=== PATIENT | male | born 1975 | race Caucasian/White ===

== ENCOUNTER 2018-12-18 13:32 | Inpatient (IN) | payer OTHER ==
[~2018-12-18] VITALS: Ht 182.9 cm; Wt 96.2 kg
--- OUTSIDE RECORDS SUMMARY | 2018-12-18 13:35 | XMS REPORT ---
Author Author Virgie Myers Organization e[employer] Address Unknown Phone Unavailable Care Team Providers Care Upholstery Covers Inspector Name Role Phone Virgie Myers CP Unavailable Allergies, Adverse Reactions, Alerts Substance Reaction Event Type N.K.D.A. Info Not Available Non Drug Allergy Encounters Encounter Location Date 2 wk fu [facility] November 12, 2013 DISCUSS MEDS [facility] March 03, 2014 Problems Problem Type Condition ICD-9 Code Onset Dates Condition Status Problem BMI 27.0-27.9,adult V85.23 Active Assessment Diabetes mellitus 250.00 Active Problem HLD (hyperlipidemia) 272.4 Active Assessment Hyperlipidemia 272.4 Active Medications Medication Code System Code Instructions Start Date End Date Status Dosage Lipitor [facility] [address]-63 10 mg Orally Once a day Active [address] [facility] [address]-02 100 UNIT/ML Subcutaneous daily Active 10-[address] [facility] [address]69 ? Orally Once a day Active as directed GlipiZIDE [facility] [address]-96 10 mg Orally Once a day November 12, 2013 Active 1 tablet Metformin HCl [facility] [address]-68 1000 mg Orally twice a day (bid) Inactive [address] [facility] [address]-66 10 mg Orally Once a day Active 1 tablet Social History Social History Element Qualifiers Date Reported children . None March 03, 2014 Tobacco Use: . Are you a: never smoker March 03, 2014 Use of recreational / street drugs? . Answer: No March 03, 2014 Marital Status: . Single March 03, 2014 Do you drink alcohol? . Status: Yes, Type: Beer, How often? 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 Avg Glu (eAG)(- mg/dL) 217 Microalb/Creat Ratio, Randm Ur Creatinine, Urine(-24.0-392.0 mg/dL) 115.8 Microalb/Creat Ratio(-0.0-30.0 mg/g creat) 10.3 Microalbumin, Urine(-0.0-17.0 ug/mL) 11.9 TSH TSH(-0.450-4.500 uIU/mL) 1.130 CBC With Differential/Platelet MCHC(-31.5-35.7 g/dL) 34.1 MCH(-26.6-33.0 pg) 29.8 Platelets(-150-379 x10E3/uL) 251 RDW(-12.3-15.4 %) 13.2 Immature Granulocytes(-0-2 %) 0 Immature Grans (Abs)(-0.0-0.1 x10E3/uL) 0.0 Lymphs(-14-46 %) 33 Monocytes(-4-12 %) 9 Neutrophils(-40-74 %) 56 Neutrophils (Absolute)(-1.4-7.0 x10E3/uL) 4.8 Hematocrit(-37.5-51.0 %) 47.2 Lymphs (Absolute)(-0.7-3.1 x10E3/uL) 2.8 MCV(-79-97 fL) 87 RBC(-4.14-5.80 x10E6/uL) 5.40 Eos(-0-5 %) 2 Basos(-0-3 %) 0 Hemoglobin(-12.6-17.7 g/dL) 16.1 Baso (Absolute)(-0.0-0.2 x10E3/uL) 0.0 WBC(-3.4-10.8 x10E3/uL) 8.6 Monocytes(Absolute)(-0.1-0.9 x10E3/uL) 0.7 Eos (Absolute)(-0.0-0.4 x10E3/uL) 0.1 Lipid Panel LDL Cholesterol Calc(-0-99 mg/dL) 85 VLDL Cholesterol Jovanny(-5-40 mg/dL) 16 HDL Cholesterol(->39 mg/dL) 68 Triglycerides(-0-149 mg/dL) 78 Cholesterol, Total(-100-199 mg/dL) 169 Comp. Metabolic Panel (14) Creatinine, Serum(-0.76-1.27 mg/dL) 0.77 BUN(-6-20 mg/dL) 20 eGFR If Africn Am(- >59 mL/min/1.73) 132 eGFR If NonAfricn Am(- >59 mL/min/1.73) 114 Sodium, Serum(-134-144 mmol/L) 140 BUN/Creatinine Ratio(-8-19 ) 26 Chloride, Serum(-97-108 mmol/L) 99 Potassium, Serum(-3.5-5.2 mmol/L) 4.2 Carbon Dioxide, Total(-18-29 mmol/L) 25 Protein, Total, Serum(-6.0-8.5 g/dL) 7.2 Calcium, Serum(-8.7-10.2 mg/dL) 10.2 Globulin, Total(-1.5-4.5 g/dL) 2.2 Albumin, Serum(-3.5-5.5 g/dL) 5.0 Bilirubin, Total(-0.0-1.2 mg/dL) 2.0 Glucose, Serum(-65-99 mg/dL) 157 A/G Ratio(-1.1-2.5 ) 2.3 ALT (SGPT)(-0-44 IU/L) 42 Alkaline Phosphatase, S(-39-117 IU/L) 78 AST (SGOT)(-0-40 IU/L) 19 Summary Purpose eClinicalWorks Submission
--- OUTSIDE RECORDS SUMMARY | 2018-12-18 13:35 | XMS REPORT | Encounter Summary ---
Author Organization Unknown Address [address] [place] [address] Phone [phone] Reason for Visit Medical Complaint Instructions 1. Body mass index 30+ - obesity 2. Pain in throat rapid strep group A, throat sore throat: care instructions Discussion Note discussed with patient to monitor for fever and any change in symptoms, return to clinic or follow up with pcp. continue tylenol or ibuprofen for discomfort. patient verbalized understanding. Plan of Care Reminders Provider Appointments None recorded. Lab Rapid Strep Group a, Throat 05/20/2018 [facility] Referral None recorded. Procedures None recorded. Surgeries None recorded. Imaging None recorded. Medications No Medications Reported Medications Administered None recorded. Vitals Height Weight BMI Blood Pressure 5 ft 11 in 230 lbs 32.1 kg/m2 120/78 mm[Hg] Lab Results Date Name Specimen Result Interpretation Description Value Range Status Address Rapid Strep Group a, Throat Result negative [facility]: [address] [place] [address] Swab Location Left and Right tonsillar pillars [facility]: [address] [place] [address] Allergies Code Code System Name Reaction Severity Status Onset NKDA Problems None recorded. Procedures None recorded. Vaccine List None recorded. Social History Smoking Status Never Smoker Past Encounters 05/20/2018 Body Mass Index 30+ - Obesity; Pain in Throat Joaquin Richter PA-C: [address] [place] [address], Ph. History of Present Illness Throat-Oral Complaint Reported By: Patient HPI: Location: throat; seems to be better before. Quality: sore throat. Severity: mild. Duration: 1/2 days. Onset/Timing: sudden. Context: no sick contacts, no foreign travel, non-smoker. Associated Symptoms: no fever, no headache, no body aches, no sputum production, no shortness of breath, no wheezing, no change in number of pillows needed to sleep at night, no sweats, no significant weight gain, no significant weight loss, no morning cough, no vomiting, no diarrhea, no rash, no nausea, sore throat Review of Systems Basic Reported By: Patient Constitutional: Constitutional: no fever Eyes: Eyes: no eye complaints Nuey-Tmcm-Ymklg-Throat: Ears: no ear complaints. Nose: no nose/sinus problems. Mouth/Throat: no bleeding gums, no mouth complaints, no teeth problems, sore throat Cardiovascular: Cardiovascular: no chest pain, no shortness of breath, no known heart murmur Respiratory: Respiratory: no cough, no wheezing, no shortness of breath Gastrointestinal: Gastrointestinal: no abdominal pain, no vomiting / diarrhea Genitourinary: Genitourinary: no urinary complaints, no discharge Musculoskeletal: Musculoskeletal: no muscle aches, no muscle weakness, no arthralgias/joint pain, no back pain Skin: Skin: no abnormal / changing mole, no jaundice, no rashes Neurologic: Neurologic: no loss of consciousness, no weakness, no numbness, no seizures, no dizziness, no headaches Physical Exam Adult Basic Reported By: Patient Constitutional: General Appearance: obese. Level of Distress: NAD. Ambulation: ambulating normally Psychiatric: Mental Status: active and alert. Orientation: to time, to place, to person Eyes: Lids and Conjunctivae: non-injected, no discharge, no pallor. Pupils: PERRLA. EOM: EOMI. Sclerae: non-icteric. Vision: acuity grossly intact Xsp-Vmry-Zjkvq-Throat: Ears: no lesions on external ear, no outer ear tenderness, EACs clear, TMs clear. Hearing: no hearing loss. Nose: no lesions on external nose, nares patent, no septal deviation, nasal passages clear, no sinus tenderness, post nasal drip. Lips, Teeth, and Gums: no mouth or lip ulcers, no bleeding gums, normal dentition. Oropharynx: moist mucous membranes, no erythema, no exudates, tonsils not enlarged; cobblestoning Neck: Neck: supple, trachea midline, no masses, FROM. Lymph Nodes: no cervical LAD, no supraclavicular LAD Lungs: Respiratory effort: no dyspnea, no tachypnea, no use of accessory muscles, no intercostal retractions. Auscultation: breath sounds normal Cardiovascular: Heart Auscultation: RRR, no murmurs
--- OUTSIDE RECORDS SUMMARY | 2018-12-18 13:35 | XMS REPORT | Continuity of Care Document ---
Author Author [facility] Address Unknown Phone Unavailable Problems Problem Status Onset Date Classification Date Reported Comments Source Pain in throat 05/20/2018 Diagnosis 05/20/2018 [facility] Body mass index 30+ - obesity 05/20/2018 Diagnosis 05/20/2018 [facility] Type 2 diabetes mellitus with hyperglycemia Active Problem 08/30/2017 [facility] Hyperlipidemia, unspecified hyperlipidemia type Active Problem 08/30/2017 [facility] Pain in right foot Active Diagnosis 08/11/2017 [facility] Pain of left foot Active Diagnosis 08/11/2017 [facility] Infertility counseling Active Diagnosis 05/28/2016 [facility] BMI 27.0-27.9,adult Active Problem 04/08/2014 [facility] Diabetes mellitus Active Diagnosis 04/08/2014 [facility] HLD Active Problem 04/08/2014 [facility] Hyperlipidemia Active Diagnosis 04/08/2014 [facility] Medications Medication Details Route Status Patient Instructions Ordering Provider Order Date Source Levemir FlexTouch as directed Subcutaneous Active 100 UNIT/ML Subcutaneous 20 units every night Merritt 05/26/2016 [facility] Levemir FlexTouch as directed Subcutaneous Active 100 UNIT/ML Subcutaneous 30 units every night Deniz 05/26/2016 [facility] Levemir Flexpen 10 units Subcutaneous Active 100 UNIT/ML Subcutaneous QHS Deniz 09/17/2015 [facility] Humalog 10 units Subcutaneous No Longer Active 100 UNIT/ML Subcutaneous 10 minutes before meals Deniz 09/17/2015 [facility] GlipiZIDE 1 tablet Orally Active 10 mg Orally Once a day Deniz 11/12/2013 [facility] Lipitor 1 tablet Orally Active 10 mg Orally Once a day Ghebranious 11/12/2013 [facility] Metformin HCl 1 tablet Orally Active 1000 mg Orally twice a day (bid) Ghebranious 10/29/2013 [facility] No Medications Reported No Medications Reported Active [facility] NovoLog 5 units Subcutaneous Active 100 UNIT/ML Subcutaneous 10 minutes before meals Merritt [facility] NovoLog 5 units Subcutaneous Active 100 UNIT/ML Subcutaneous 10 minutes before meals Deniz [facility] GlipiZIDE 1 tablet Orally Active 10 mg Orally Once a day Deniz [facility] Lipitor 1 tablet Orally Active 10 mg Orally Once a day Deniz [facility] Multivitamin as directed Orally Active ? Orally Once a day Lisajeffmagedsrinivasa [facility] Metformin HCl 1 tablet Orally No Longer Active 1000 mg Orally twice a day (bid) Louis [facility] Allergies, Adverse Reactions, Alerts Substance Category Reaction Severity Reaction type Status Date Reported Comments Source N.K.D.A. Adverse Reaction Info Not Available Adverse Reaction Active 08/10/2017 [facility] Immunizations Immunization Date Given Site Status Last Updated Comments Source Results Order Name Results Value Reference Range Date Interpretation Comments Source RESULT negative 05/20/2018 [facility] SWAB LOCATION Left and Right tonsillar pillars 05/20/2018 [facility] Vital Signs Vital Sign Value Date Comments Source Diastolic (mm Hg) 78 05/20/2018 [facility] Height 71 05/20/2018 [facility] Systolic (mm Hg) 120 05/20/2018 [facility] Weight 230 05/20/2018 [facility] Weight 240 08/10/2017 [facility] Height 71 08/10/2017 [facility] Heart Rate 88 08/10/2017 [facility] Diastolic (mm Hg) 70 08/10/2017 [facility] Systolic (mm Hg) 118 08/10/2017 [facility] Weight 228 10/19/2016 [facility] Height 71 10/19/2016 [facility] Heart Rate 87 10/19/2016 [facility] Diastolic (mm Hg) 76 10/19/2016 [facility] Systolic (mm Hg) 122 10/19/2016 [facility] Weight 223 05/26/2016 [facility] Height 71 05/26/2016 [facility] Heart Rate 91 05/26/2016 [facility] Diastolic (mm Hg) 80 05/26/2016 [facility] Systolic (mm Hg) 120 05/26/2016 [facility] Weight 220 07/23/2015 [facility] Height 71 07/23/2015 [facility] Heart Rate 97 07/23/2015 [facility] Diastolic (mm Hg) 80 07/23/2015 [facility] Systolic (mm Hg) 118 07/23/2015 [facility] Weight 203 03/03/2014 [facility] Height 71 03/03/2014 [facility] Temperature Oral (F) 98.3 F 03/03/2014 [facility] Heart Rate 84 03/03/2014 [facility] Diastolic (mm Hg) 90 03/03/2014 [facility] Systolic (mm Hg) 136 03/03/2014 [facility] Weight 196 11/12/2013 [facility] Height 71 11/12/2013 [facility] Heart Rate 76 11/12/2013 [facility] Diastolic (mm Hg) 80 11/12/2013 [facility] Systolic (mm Hg) 128 11/12/2013 [facility] Encounters Location Location Details Encounter Type Encounter Number Reason For Visit Attending Provider ADM Date DC Date Status Source [facility] 2 wk fu [id number] 11/12/2013 11/12/2013 [facility] 2 wk fu [id number] 11/12/2013 11/12/2013 [facility] 2 wk fu [id number] 11/12/2013 11/12/2013 [facility] 2 wk fu [id number] 11/12/2013 11/12/2013 [facility] 2 wk fu [id number] 11/12/2013 11/12/2013 [facility] DISCUSS MEDS [id number] 03/03/2014 03/03/2014 [facility] DISCUSS MEDS [id number] 03/03/2014 03/03/2014 [facility] DISCUSS MEDS [id number] 03/03/2014 03/03/2014 [facility] DISCUSS MEDS [id number] 03/03/2014 03/03/2014 [facility] medication refill [id number] 07/23/2015 07/23/2015 [facility] medication refill [id number] 07/23/2015 07/23/2015 [facility] medication refill [id number] 07/23/2015 07/23/2015 [facility] 3 MONTH FOLLOW UP [id number] 05/26/2016 05/26/2016 [facility] 3 MONTH FOLLOW UP [id number] 05/26/2016 05/26/2016 [facility] medication refills [id number] 10/19/2016 10/19/2016 [facility] [place] [facility] - [id number] ChristieC: [address] [facility] [place], [place] [address], Ph. [id number] Joaquin Richter 05/20/2018 [facility] Procedures Procedure Code Date Perfomer Comments Source
--- OUTSIDE RECORDS SUMMARY | 2018-12-18 13:35 | XMS REPORT ---
Author Author Lory Guaman [employer] Address Unknown Phone Unavailable Care Team Providers Care Application Penetration Tester Name Role Phone Lory Guaman CP Unavailable Allergies, Adverse Reactions, Alerts Substance Reaction Event Type N.K.D.A. Info Not Available Non Drug Allergy Encounters Encounter Location Date 3 MONTH FOLLOW UP [facility] May 26, 2016 medication refills [facility] October 19, 2016 2 wk fu [facility] November 12, 2013 DISCUSS MEDS [facility] March 03, 2014 medication refill [facility] Jul 23, 2015 Problems Problem Type Condition ICD-9 Code Onset Dates Condition Status Problem Type 2 diabetes mellitus with hyperglycemia E11.65 Active Assessment Type 2 diabetes mellitus with hyperglycemia E11.65 Active Problem Hyperlipidemia, unspecified hyperlipidemia type E78.5 Active Assessment Hyperlipidemia, unspecified hyperlipidemia type E78.5 Active Medications Medication Code System Code Instructions Start Date End Date Status Dosage Levemir FlexTouch [facility] [address]-93 100 UNIT/ML Subcutaneous 30 units every night May 26, 2016 Active as directed Levemir FlexTouch [facility] [address]-57 100 UNIT/ML Subcutaneous 20 units every night May 26, 2016 Active as directed NovoLog [facility] [address]-23 100 UNIT/ML Subcutaneous 10 minutes before meals Active 5 units Social History Social History Element Qualifiers Date Reported 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 None October 19, 2016 Flu Vaccine: . Refuse for 2015October 19, 2016 Tobacco Use: . Are you a: never smoker October 19, 2016 Depression Screening: . negative October 19, 2016 Use of recreational / street drugs? . Answer: No October 19, 2016 Do you have pets? . Status: No October 19, 2016 Last Colonoscopy: . never October 19, 2016 Marital Status: . Single October 19, 2016 Caffeine intake? . Status: Yes October 19, 2016 Do you exercise? . Answer: No October 19, 2016 Last Bone Density: . never October 19, 2016 Do you drink alcohol? . Status: Yes, Type: Beer, How often? Weekly October 19, 2016 Family history Qualifier Description Comment Date Reported Maternal Grandmother Comment not available October 19, 2016 Paternal Grandmother Comment not available October 19, 2016 Siblings Comment not available October 19, 2016 Maternal Grandfather Comment not available October 19, 2016 Children Comment not available October 19, 2016 Father respiratory failure 2 to smoking October 19, 2016 Paternal Grandfather Comment not available October 19, 2016 Mother alive depression October 19, 2016 Other: Comment not available October 19, 2016 Vital Signs Date/Time: October 19, 2016 Weight 228 lbs Height 71 in Cardiac Monitoring Heart Rate 87 /min Blood Pressure Diastolic 76 mm Hg Blood Pressure Systolic 122 mm Hg Summary Purpose eClinicalWorks Submission
--- OUTSIDE RECORDS SUMMARY | 2018-12-18 13:35 | XMS REPORT ---
Author Author Cris Bang Organization e[employer] Address Unknown Phone Unavailable Care Team Providers Care Access Clerk Name Role Phone Cris Bang CP Unavailable Allergies No Known Allergies Problems Problem Type Condition Code Onset Dates Condition Status Problem Type 2 diabetes mellitus with hyperglycemia E11.65 Active Problem Hyperlipidemia, unspecified hyperlipidemia type E78.5 Active Medications No Known Medications Results No Known Results Summary Purpose eClinicalWorks Submission
--- OUTSIDE RECORDS SUMMARY | 2018-12-18 13:35 | XMS REPORT ---
Author Author Lory Guaman [employer] Address Unknown Phone Unavailable Care Team Providers Care Slabbing Machine Operator Name Role Phone Lory Guaman CP Unavailable Allergies, Adverse Reactions, Alerts Substance Reaction Event Type N.K.D.A. Info Not Available Non Drug Allergy Encounters Encounter Location Date 3 MONTH FOLLOW UP [facility] May 26, 2016 2 wk fu [facility] November 12, 2013 DISCUSS MEDS [facility] March 03, 2014 medication refill [facility] Jul 23, 2015 Problems Problem Type Condition ICD-9 Code Onset Dates Condition Status Problem Type 2 diabetes mellitus with hyperglycemia E11.65 Active Assessment Type 2 diabetes mellitus with hyperglycemia E11.65 Active Problem Hyperlipidemia, unspecified hyperlipidemia type E78.5 Active Assessment Hyperlipidemia, unspecified hyperlipidemia type E78.5 Active Assessment Infertility counseling Z31.69 Active Medications Medication Code System Code Instructions Start Date End Date Status Dosage Levemir Flexpen [facility] [address]-39 100 UNIT/ML Subcutaneous QHS Sep 17, 2015 Active 10 units Humalog [facility] [address]-70 100 UNIT/ML Subcutaneous 10 minutes before meals Sep 17, 2015 Inactive 10 units Levemir FlexTouch [facility] [address]-11 100 UNIT/ML Subcutaneous 30 units every night May 26, 2016 Active as directed Social History Social History Element Qualifiers Date Reported Depression Screening: . negative May 26, 2016 Flu Vaccine: . Refuse for 2015May 26, 2016 Last Colonoscopy: . never May 26, 2016 Last Bone Density: . never May 26, 2016 children . None May 26, 2016 Tobacco Use: . Are you a: never smoker May 26, 2016 Use of recreational / street drugs? . Answer: No May 26, 2016 Marital Status: . Single May 26, 2016 Do you drink alcohol? . Status: Yes, Type: Beer, How often? 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 Family history Qualifier Description Comment Date Reported Maternal Grandmother Comment not available May 26, 2016 Paternal Grandmother Comment not available May 26, 2016 Siblings Comment not available May 26, 2016 Maternal Grandfather Comment not available May 26, 2016 Children Comment not available May 26, 2016 Father respiratory failure 2 to smoking May 26, 2016 Paternal Grandfather Comment not available May 26, 2016 Mother alive depression May 26, 2016 Other: Comment not available May 26, 2016 Vital Signs Date/Time: May 26, 2016 Weight 223 lbs Height 71 in Cardiac Monitoring Heart Rate 91 /min Blood Pressure Diastolic 80 mm Hg Blood Pressure Systolic 120 mm Hg Summary Purpose eClinicalWorks Submission
--- OUTSIDE RECORDS SUMMARY | 2018-12-18 13:35 | XMS REPORT ---
Author Author Cris Bang Organization [employer] Address Unknown Phone Unavailable Care Team Providers Care Art Glass Designer Name Role Phone Cris Bang CP Unavailable Allergies, Adverse Reactions, Alerts Substance Reaction Event Type N.K.D.A. Info Not Available Non Drug Allergy Problems Problem Type Condition Code Onset Dates Condition Status Problem Type 2 diabetes mellitus with hyperglycemia E11.65 Active Assessment Type 2 diabetes mellitus with hyperglycemia E11.65 Active Problem Hyperlipidemia, unspecified hyperlipidemia type E78.5 Active Assessment Pain in right foot M79.671 Active Assessment Hyperlipidemia, unspecified hyperlipidemia type E78.5 Active Assessment Pain of left foot M79.672 Active Medications Medication Code System Code Instructions Start Date End Date Status Dosage Levemir FlexTouch [facility] 14685424248 100 UNIT/ML Subcutaneous 20 units every night May 26, 2016 Active as directed NovoLog [facility] 26750175626 100 UNIT/ML Subcutaneous 10 minutes before meals Active 5 units Vital Signs Date/Time: Aug 10, 2017 BMI 33.47 Index Weight 240 lbs Height 71 in Cardiac Monitoring Heart Rate 88 /min Blood Pressure Diastolic 70 mm Hg Blood Pressure Systolic 118 mm Hg Results No Known Results Summary Purpose eClinicalWorks Submission
--- OUTSIDE RECORDS SUMMARY | 2018-12-18 13:35 | XMS REPORT ---
Author Author Virgie Myers Organization [employer] Address Unknown Phone Unavailable Care Team Providers Care Tensile Tester Name Role Phone Virgie Myers CP Unavailable Encounters Encounter Location Date 2 wk fu [facility] November 12, 2013 Problems Problem Type Condition ICD-9 Code Onset Dates Condition Status Assessment Diabetes mellitus 250.00 Active Assessment Hyperlipidemia 272.4 Active Problem BMI 27.0-27.9,adult V85.23 Active Medications Medication Code System Code Instructions Start Date End Date Status Dosage Metformin HCl [facility] [address]-44 1000 mg Orally twice a day (bid) October 29, 2013 Active [address] [facility] [address]-70 10 mg Orally Once a day November 12, 2013 Active [address] [facility] [address] ? Orally Once a day Active as directed Lipitor [facility] [address]-82 10 mg Orally Once a day November 12, 2013 Active 1 tablet Social History Social History Element Qualifiers Date Reported children . None November 12, 2013 Tobacco Use: . Are you a: never smoker November 12, 2013 Use of recreational / street drugs? . Answer: No November 12, 2013 Marital Status: . Single November 12, 2013 Do you drink alcohol? . Status: Yes, Type: Beer, How often? 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
--- OUTSIDE RECORDS SUMMARY | 2018-12-18 13:35 | XMS REPORT ---
Author Author Lory Gumaan [facility] [place] e[employer] Address Unknown Phone Unavailable Care Team Providers Care Top Taper Machine Name Role Phone Lory Guaman Unavailable Allergies, Adverse Reactions, Alerts Substance Reaction Event Type N.K.D.A. Info Not Available Non Drug Allergy Encounters Encounter Location Date 2 wk fu [facility] November 12, 2013 DISCUSS MEDS [facility] March 03, 2014 medication refill [facility] Jul 23, 2015 Problems Problem Type Condition ICD-9 Code Onset Dates Condition Status Assessment Type 2 diabetes mellitus with hyperglycemia E11.65 Active Problem Type 2 diabetes mellitus with hyperglycemia E11.65 Active Medications Medication Code System Code Instructions Start Date End Date Status Dosage GlipiZIDE [facility] [address]-88 10 mg Orally Once a day Active 1 tablet [facility] [address]-96 10 mg Orally Once a day Active 1 tablet NovoLog [facility] [address]-04 100 UNIT/ML Subcutaneous daily Active 10-18 units GlipiZIDE [facility] [address]-06 10 mg Orally Once a day November 12, 2013 Active 1 tablet Social History Social History Element Qualifiers Date Reported Depression Screening: . negative Jul 23, 2015 Flu Vaccine: . no Jul 23, 2015 Last Colonoscopy: . never Jul 23, 2015 Last Bone Density: . never Jul 23, 2015 children . None Jul 23, 2015 Tobacco Use: . Are you a: never smoker Jul 23, 2015 Use of recreational / street drugs? . Answer: No Jul 23, 2015 Marital Status: . Single Jul 23, 2015 Do you drink alcohol? . Status: Yes, Type: Beer, How often? 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 23, 2015 Family history Qualifier Description Comment Date Reported Maternal Grandmother Comment not available Jul 23, 2015 Paternal Grandmother Comment not available Jul 23, 2015 Siblings Comment not available Jul 23, 2015 Maternal Grandfather Comment not available Jul 23, 2015 Children Comment not available Jul 23, 2015 Father respiratory failure 2 to smoking Jul 23, 2015 Paternal Grandfather Comment not available Jul 23, 2015 Mother alive depression Jul 23, 2015 Other: Comment not available Jul 23, 2015 Vital Signs Date/Time: Jul 23, 2015 Weight 220 lbs Height 71 in Cardiac Monitoring Heart Rate 97 /min Blood Pressure Diastolic 80 mm Hg Blood Pressure Systolic 118 mm Hg Summary Purpose eClinicalWorks Submission
[2018-12-18] MEDS ORDERED: FAMOTIDINE 20 MG/2 ML VIAL IV STA (14:05)
[2018-12-18] MEDS ORDERED: ONDANSETRON HCL INJ 2MG/ML 2ML 2 MG/ML VIAL IV STA (14:05)
--- NOTE | 2018-12-18 14:21 | Diagnostic Imaging Report ---
EXAMINATION: CXR 1 VEW - HOPD INDICATION: Hyperglycemia. COMPARISON: None FINDINGS: TUBES and LINES: None. LUNGS: Lungs are well inflated. Lungs are clear. There is no evidence of pneumonia or pulmonary edema. PLEURA: No pleural effusion or pneumothorax. HEART AND MEDIASTINUM: The cardiomediastinal silhouette is unremarkable. BONES AND SOFT TISSUES: No acute osseous abnormality. UPPER ABDOMEN: No free air under the diaphragm. IMPRESSION: No acute radiographic abnormality. Signed by: Dr. Cookie Mack MD on 12/18/2018 2:18 PM
[2018-12-18] MEDS ORDERED: CLINDAMYCIN PHOS 900MG/ 50ML 50 ML IV NR (15:00)
[2018-12-18] MEDS: SODIUM CHLORIDE 0.9% 1000ML 1,000 ML IV SCH ×9 (15:16→22:24)
[2018-12-18] MEDS ORDERED: INSULIN REGULAR, HUMAN 3ML VL 100 UNIT in SODIUM CHLORIDE 0.9% 100 ML 99 ML IV SCH ×4 (16:30→22:30)
[2018-12-18] MEDS ORDERED: SODIUM CHLORIDE 0.9% 1000ML 1,000 ML IV SCH ×2 (16:30→16:37)
[2018-12-18 16:32] LABS: MAGNESIUM 2.5 MG/DL (1.3-2.1); PHOSPHORUS 3.2 MG/DL (2.3-4.7)
[2018-12-18] MEDS ORDERED: DEXTROSE 5%/0.45% SOD CHL 1,000 ML IV SCH (16:33)
[2018-12-18] MEDS ORDERED: INSULIN REGULAR, HUMAN 3ML VL 1 UNIT in SODIUM CHLORIDE 0.9% 100 ML IV SCH ×2 (16:45)
[2018-12-18] MEDS ORDERED: MAGNESIUM SULF 1GRAM/DEXTROSE 100 ML IV PRN (16:45)
[2018-12-18] MEDS ORDERED: ONDANSETRON HCL INJ 2MG/ML 2ML 2 MG/ML VIAL IV PRN (16:45)
[2018-12-18] MEDS ORDERED: POTASSIUM CHLORIDE 20MEQ/100ML 200 ML IV PRN (16:45)
[2018-12-18 17:00] LABS: ANION GAP 30.1 mmol/L (8-16); CREATININE, SERUM 1.72 mg/dL (0.72-1.25)
[2018-12-18 17:02] LABS: POTASSIUM 5.1 mmol/L (3.5-5.1)
--- OUTSIDE RECORDS SUMMARY | 2018-12-18 17:16 | XMS REPORT | Continuity of Care Document ---
Author Author [facility] Address Unknown Phone Unavailable Problems Problem Status Onset Date Classification Date Reported Comments Source History of diabetes mellitus 12/18/2018 Diagnosis 12/18/2018 [facility] Nausea and vomiting 12/18/2018 Diagnosis 12/18/2018 [facility] Elevated blood pressure 12/18/2018 Diagnosis 12/18/2018 [facility] On examination - pulse rate tachycardia 12/18/2018 Diagnosis 12/18/2018 [facility] Body mass index 30+ - obesity 12/18/2018 Diagnosis 12/18/2018 [facility] Pain in throat 05/20/2018 Diagnosis 05/20/2018 [facility] Type 2 diabetes [...] Subcutaneous 10 minutes before meals Deniz 09/17/2015 [facility] GlipiZIDE 1 tablet Orally Active 10 mg Orally Once a day [facility] 11/12/2013 [facility] Lipitor 1 tablet Orally Active 10 mg Orally Once a day [facility] 11/12/2013 [facility] Metformin HCl 1 tablet Orally Active 1000 mg Orally twice a day (bid) [facility] 10/29/2013 [facility] No Medications Reported No Medications Reported Active [facility] Insulin, Aspart, Human 100 UNT/ML Injectable Solution [NovoLog] Novolog U-100 Insulin aspart 100 unit/mL subcutaneous solution Inject by subcutaneous route. Active [facility] NovoLog 5 units Subcutaneous Active 100 UNIT/ML Subcutaneous 10 minutes before meals [facility] NovoLog 5 units Subcutaneous Active 100 UNIT/ML Subcutaneous 10 minutes before meals [facility] GlipiZIDE 1 tablet Orally Active 10 mg Orally Once a day [facility] Lipitor 1 tablet Orally Active 10 mg Orally Once a day [facility] Multivitamin as directed Orally Active ? Orally Once a day [facility] Metformin HCl 1 tablet Orally No Longer Active 1000 mg Orally twice a day (bid) [facility] Allergies, Adverse Reactions, Alerts Substance Category Reaction Severity Reaction type Status Date Reported Comments Source N.K.D.A. Adverse Reaction Info Not Available Adverse Reaction Active 08/10/2017 [facility] Immunizations Immunization Date Given Site Status Last Updated Comments Source Results Order Name Results Value Reference Range Date Interpretation Comments Source Glucose [Mass/volume] in Capillary blood Results 533 12/18/2018 [facility] Influenza A negative 12/18/2018 [facility] Influenza B negative 12/18/2018 [facility] RESULT negative 05/20/2018 [facility] SWAB LOCATION Left and Right tonsillar pillars 05/20/2018 [facility] Vital Signs Vital Sign Value Date Comments Source Diastolic (mm Hg) 94 12/18/2018 [facility] Height 71 12/18/2018 [facility] Systolic (mm Hg) 134 12/18/2018 [facility] Weight 230 12/18/2018 [facility] Diastolic (mm Hg) 78 05/20/2018 [facility] Height 71 05/20/2018 [facility] Systolic (mm Hg) 120 05/20/2018 [facility] Weight 230 05/20/2018 [facility] Weight 240 08/10/2017 [facility] Height [...] [facility] Heart Rate 87 10/19/2016 [facility] Diastolic (mm Hg) 76 10/19/2016 [facility] Systolic (mm Hg) 122 10/19/2016 [facility] Weight 223 05/26/2016 [facility] Height 71 05/26/2016 [facility] Heart Rate 91 05/26/2016 [facility] Diastolic (mm Hg) 80 05/26/2016 [facility] Systolic (mm Hg) 120 05/26/2016 [facility] Weight 220 07/23/2015 [facility] Height 71 07/23/2015 [facility] Heart Rate 97 07/23/2015 [facility] Diastolic (mm Hg) 80 07/23/2015 [facility] Systolic (mm Hg) 118 07/23/2015 [facility] Weight 203 03/03/2014 [facility] Height 71 03/03/2014 [facility] Temperature Oral (F) 98.3 F 03/03/2014 [facility] Heart Rate 84 03/03/2014 [facility] Diastolic (mm Hg) 90 03/03/2014 [facility] Systolic (mm Hg) 136 03/03/2014 [facility] Weight 196 11/12/2013 [facility] Height 71 11/12/2013 [facility] Heart Rate 76 11/12/2013 [facility] Diastolic (mm Hg) 80 11/12/2013 [facility] Systolic (mm Hg) 128 11/12/2013 [facility] Encounters Location Location Details Encounter Type Encounter Number Reason For Visit Attending Provider ADM Date DC Date Status Source [facility] 2 wk fu [id number] 11/12/2013 11/12/2013 [facility] 2 wk fu [id number] 11/12/2013 11/12/2013 [facility] 2 wk fu [id number] 11/12/2013 11/12/2013 [facility] 2 wk fu [id number] 11/12/2013 11/12/2013 [facility] 2 wk fu [id number] 11/12/2013 11/12/2013 [facility] DISCUSS MEDS [id number] 03/03/2014 03/03/2014 [facility] DISCUSS MEDS [id number] 03/03/2014 03/03/2014 [facility] DISCUSS MEDS [id number] 03/03/2014 03/03/2014 [facility] DISCUSS MEDS [id number] 03/03/2014 03/03/2014 [facility] medication refill [id number] 07/23/2015 07/23/2015 [facility] medication refill [id number] 07/23/2015 07/23/2015 [facility] medication refill [id number] 07/23/2015 07/23/2015 [facility] 3 MONTH FOLLOW UP [id number] 05/26/2016 05/26/2016 [facility] 3 MONTH FOLLOW UP [id number] 05/26/2016 05/26/2016 [facility] medication refills [id number] 10/19/2016 10/19/2016 [facility] [place] [facility] - [id number] ЮЛИЯ Burgos-C: [address] [place] [address], Ph. [id number] Joaquin Richter 05/20/2018 [facility] [place] [facility] [id number] Karey Sharma CODING SPEC-C: [address] [place] [address], Ph. [id number] Karey Sharma 12/18/2018 [facility] Procedures Procedure Code Date Perfomer Comments Source
--- OUTSIDE RECORDS SUMMARY | 2018-12-18 17:17 | XMS REPORT | Encounter Summary ---
Author Organization Unknown Address [address] [place] [address] Phone [phone] Reason for Visit Medical Complaint Instructions 1. History of diabetes mellitus glucose, fingerstick, blood patient follow up phone call diabetic ketoacidosis (dka): care instructions 2. Nausea and vomiting rapid flu (A+B) nausea and vomiting: care instructions 3. On examination - pulse rate tachycardia 4. Elevated blood pressure elevated blood pressure: care instructions dash diet: care instructions blood pressure monitoring education 5. Body mass index 30+ - obesity body mass index: care instructions learning about healthy weight Discussion Note: None recorded. Plan of Care Patient Instructions Diabetic ketoacidosis (DKA) happens when the body does not have enough insulin and can't get the sugar it needs for energy. When the body can't use sugar for energy, it starts to use fat for energy. This process makes fatty acids called ketones. The ketones build up in the blood and change the chemical balance in your body. This problem can be very dangerous and needs to be treated. Without treatment, it can lead to a coma or . DKA occurs most often in people with type 1 diabetes. But people with type 2 diabetes also can get it. DKA can be caused by many things. It can happen if you don't take enough insulin. It can also happen if you have an infection or illness like the flu. Sometimes it happens if you are very dehydrated. DKA can only be treated with insulin and fluids. These are often given in a vein (IV). Follow-up care is a torres part of your treatment and safety. Be sure to make and go to all appointments, and call your doctor if you are having problems. It's also a good idea to know your test results and keep a list of the medicines you take. How can you care for yourself at home? To reduce your chance of ketoacidosis: Take your insulin and other diabetes medicines on time and in the right dose. If an infection caused your DKA and your doctor prescribed antibiotics, take them as directed. Do not stop taking them just because you feel better. You need to take the full course of antibiotics. Test your blood sugar before meals and at bedtime or as often as your doctor advises. This is the best way to know when your blood sugar is high so you can treat it early. Watching for symptoms is not as helpful. This is because you may not have symptoms until your blood sugar is very high. Or you may not notice them. Teach others at work and at home how to check your blood sugar. Make sure that someone else knows how do it in case you can't. Wear or carry medical identification at all times. This is very important in case you are too sick or injured to speak for yourself. Talk to your doctor about when you can start to exercise again. Eat regular meals that spread your calories and carbohydrate throughout the day. This will help keep your blood sugar steady. When you are sick: Take your insulin and diabetes medicines. This is important even if you are vomiting and having trouble eating or drinking. Your blood sugar may go up because you are sick. If you are eating less than normal, you may need to change your dose of insulin. Talk with your doctor about a plan when you are well. Then you will know what to do when you are sick. Drink extra fluids to prevent dehydration. These include water, broth, and sugar-free drinks. If you don't drink enough, the insulin from your shot may not get into your blood. So your blood sugar may go up. Try to eat as you normally do, with a focus on healthy food choices. Check your blood sugar at least every 3 to 4 hours. Check it more often if it's rising fast. If your doctor has told you to take an extra insulin dose for high blood sugar levels (for example, above 240 mg/dL) be sure to take the right amount. If you're not sure how much to take, call your doctor. Check your temperature and pulse often. If your temperature goes up, call your doctor. You may be getting worse. If you take insulin, check your urine or blood for ketones, especially when you have high blood sugar (for example, above 240 mg/dL). Call your doctor if your ketone level is moderate or high. If you know your blood sugar is high, treat it before it gets worse. If you missed your usual dose of insulin or other diabetes medicine, take the missed dose or take the amount your doctor told you to take if this happens. If you and your doctor decide on a dose of [id number] insulin, give yourself the right dose. If you take insulin and your doctor has not told you how much fast-acting insulin to take based on your blood sugar level, call your doctor. Drink extra water or sugar-free drinks to prevent dehydration. Wait 30 minutes after you take extra insulin or missed medicines. Then check your blood sugar again. If symptoms of high blood sugar get worse or your blood sugar level keeps rising, call your doctor. If you start to feel sleepy or confused, call 911. When should you call for help? Call 911 anytime you think you may need emergency care. For example, call if: You passed out (lost consciousness). You are confused or cannot think clearly. Your blood sugar is very high or very low. Watch closely for changes in your health, and be sure to contact your doctor if: Your blood sugar stays outside the level your doctor set for you. You have any problems. Reminders Provider Appointments None recorded. Lab Rapid Flu (A+B) 12/18/2018 [facility] Glucose, Fingerstick, Blood 12/18/2018 [facility] Referral None recorded. Procedures None recorded. Surgeries None recorded. Imaging None recorded. Medications Name Start Date Novolog U-100 Insulin aspart 100 unit/mL subcutaneous solution Inject by subcutaneous route. Medications Administered None recorded. Vitals Height Weight BMI Blood Pressure 5 ft 11 in 230 lbs 32.1 kg/m2 (1) 138/90 mm[Hg] (2) 134/94 mm[Hg] Lab Results Date Name Specimen Result Interpretation Description Value Range Status Address Glucose, Fingerstick, Blood Results 533 [facility]: [facility] Rapid Flu (A+B) Influenza a negative [facility]: [address] [place] [address] Influenza B negative [facility]: [address] [place] [address] Allergies Code Code System Name Reaction Severity Status Onset NKDA Problems No Known Problems Procedures None recorded. Vaccine List None recorded. Social History Smoking Status Never Smoker Past Encounters 12/18/2018 History of Diabetes Mellitus; Nausea and Vomiting; On Examination - Pulse Rate Tachycardia; Elevated Blood Pressure; Body Mass Index 30+ - Obesity [facility] Salomon: [address] [place] [address], Ph. History of Present Illness Acbnmh-Pshiwxbv-Mbewwjwe / Abdominal Pain Reported By: Patient HPI: Duration: present for < 1 week. Context: no one else with similar symptoms, no recent camping, no recent picnic, no possible food sources, no recent travel; pt states that he has a hx pf diabetes, on novolog and has not eaten in 3 days. Associated Symptoms: no excess gas, no fever/chills, no rash, no joint pain, no weight loss, no heartburn, no blood in stool, no mucus in stool, no black or tarry stools, no nutrient deficiency, no headache, no feeling of fullness/mass in throat, no bitter taste in the mouth, no difficulty swallowing (dysphagia), abdominal pain, nausea, vomiting, weakness, muscle aches Note:43 YO male with complaint of nausea, vomiting, body aches x 3 days Review of Systems:ROS as noted in the HPI Review of Systems Basic Reported By: Patient Notes: 43 YO male with complaint of nausea, vomiting, body aches x 3 days Physical Exam Adult Basic, Adult Male Complete Reported By: Patient Constitutional: General Appearance: obese. Level of Distress: mild distress, acutely ill. Ambulation: ambulating normally Psychiatric: Mental Status: lethargic. Orientation: to time, to place, to person Lungs: Respiratory effort: no dyspnea, no tachypnea, no use of accessory muscles, no intercostal retractions. Auscultation: breath sounds normal, good air movement Cardiovascular: Heart Auscultation: no murmurs, tachycardia Notes: 43 YO male with complaint of nausea, vomiting, body aches x 3 days
--- OUTSIDE RECORDS SUMMARY | 2018-12-18 17:17 | XMS REPORT ---
Author Author [facility] Address Unknown Phone Unavailable Care Team Providers Care Environmental Studies Professor Name Role Phone Billy ALVAREZ Unavailable Unavailable Problems This patient has no known problems. Allergies, Adverse Reactions, Alerts This patient has no known allergies or adverse reactions. Medications This patient has no known medications. Results Test Description Test Time Test Comments Text Results Atomic Results Result Comments CXR 1 W - [facility] 2018-12-18 14:16:00 [place] [id number] Patient Name: VIOLA JOHNSON MR #: [id number] : 1975 Age/Sex: 43/M Req #: [id number] Adm Physician: Ordered by: COLBY ALVAREZ MD Report #: [id number] Location: [facility] Room/Bed: Procedure: [id number] HOPD/CXR 1 VEW - [facility] Exam Date: 12/18/18 Exam Time: 1400 REPORT STATUS: Signed EXAMINATION: CXR 1 VEW - [facility] INDICATION: Hyperglycemia. COMPARISON: None FINDINGS: TUBES and LINES: None. LUNGS: Lungs are well inflated. Lungs are clear. There is no evidence of pneumonia or pulmonary edema. PLEURA: No pleural effusion or pneumothorax. HEART AND MEDIASTINUM: The cardiomediastinal silhouette is unremarkable. BONES AND SOFT TISSUES: No acute osseous abnormality. UPPER ABDOMEN: No free air under the diaphragm. IMPRESSION: No acute radiographic abnormality. Signed by: Dr. Zoey Barrientos MD on 12/18/2018 2:18 PM Dictated By: ZOEY BARRIENTOS MD [id number] Transcribed By: AYLEEN on 12/18/181417 COPY TO: COLBY ALVAREZ MD
--- NOTE | 2018-12-18 18:00 | NUR ---
ATTEMPTED TO CALL REPORT ON PATIENT FOR TRANSFER. SPOKE WITH KIZZY WHO STATES SHE CANNOT ACCEPT THE PATIENT RIGHT NOW SHE HAS 2 OTHER ADMISSSIONS COMING AT THIS TIME AND SHE IS UNABLE TO ACCEPT THE PATIENT.
--- NOTE | 2018-12-18 18:05 | NUR ---
SPOKE WITH GEAR MACHINIST CARLOS ALBERTO AND INFORMED HER THAT THE ICU WAS REFUSING TO ACCEPT MY PATIENT WHO IS IN DKA AND NEEDS AN INSULIN DRIP STARTED.CARLOS ALBERTO ASKED ME TO CALL KIZZY. INFORMED CARLOS ALBERTO THAT KIZZY IS THE NURSE WHO REFUSED TO ACCEPT REPORT. INFORMED CARLOS ALBERTO THAT THE AMBULANCE HAS ALREADY BEEN CALLED.
[2018-12-18] MEDS ORDERED: INSULIN REGULAR, HUMAN 3ML VL 100 UNIT in SODIUM CHLORIDE 0.9% 99 ML IV SCH ×2 (18:30)
[2018-12-18 19:35] VITALS: BP 153/83
[2018-12-18 19:45] VITALS: BP 153/83
[2018-12-18 20:00] VITALS: BP 152/87
--- NOTE | 2018-12-18 20:15 | NUR ---
present and assessing the pt. Notified at the pts bedside of pts LLE redness and discoloration to which he assessed at this time. New orders received to consult and , CT without contrast of LLE, new medication orders placed in [facility] by as well.
--- NOTE | 2018-12-18 20:35 | NUR ---
Notified of new consult. Discussed BMP results and DKA diagnosis. New orders received to cancel hospital DKA protocol and to order 's Insulin gtt Protocol and to continue NS at 150ml/hr.
[2018-12-18 21:00] VITALS: BP 152/86
[2018-12-18 21:02] LABS: ANION GAP 24.3 mmol/L (8-16); CALCIUM 9.1 mg/dL (8.4-10.2); CREATININE, SERUM 1.58 mg/dL (0.72-1.25); MAGNESIUM 2.4 MG/DL (1.3-2.1); POTASSIUM 4.3 mmol/L (3.5-5.1)
--- NOTE | 2018-12-18 21:06 | NUR ---
Notified 's answering service of consult at this time.
[2018-12-18 21:10] LABS: BASOPHILS # (AUTO) 0.1 (0.0-0.1); BASOPHILS % 0.3 % (0.0-1.0); HEMOGLOBIN 16.2 g/dL (14.0-18.0); LYMPHOCYTES # (AUTO) 1.2 (1.0-3.2); LYMPHOCYTES % 6.7 % (18.0-39.1); MEAN CORPUSCULAR HEMOGLOBIN 30.5 pg (28-32); MEAN CORPUSCULAR HGB CONC 34.5 g/dL (31-35); MEAN CORPUSCULAR VOLUME 88.5 fL (81-99); MONOCYTES # (AUTO) 1.8 (0.2-0.8); NEUTROPHILS # (AUTO) 14.7 (2.1-6.9); NEUTROPHILS % 80.5 % (38.7-80.0); PLATELET COUNT 223 x10e3/uL (140-360); RED BLOOD COUNT 5.31 x10e6/uL (4.3-5.7)
--- NOTE | 2018-12-18 21:15 | NUR ---
Assisted pt to CT scan without event and pt returned to ICU room 193. No signs of distress noted, pt reports no pain at this time.
[2018-12-18 21:38] LABS: BAND NEUTROPHILS % (MANUAL) 6 %; LYMPHOCYTES % (MANUAL) 5 % (19-48); MONOCYTES % (MANUAL) 7 % (3.4-9.0); NEUTROPHILS % (MANUAL) 82 % (40-74); NUCLEATED RED BLOOD CELLS 1
[2018-12-18 21:39] LABS: PLATELET ESTIMATE ADEQUATE; PLATELET MORPHOLOGY COMMENT NORMAL; RBC MORPHOLOGY COMMENT NORMAL
[2018-12-18 22:00] VITALS: BP 124/79
[2018-12-18 23:00] VITALS: BP 150/80
--- NOTE | 2018-12-18 23:16 | Diagnostic Imaging Report ---
EXAM: CT left lower extremity WITHOUT contrast INDICATION: ^LLE redness/rule out cellulitis/fascitis/osteomyelitis ^20181218 ^2119 ^Y COMPARISON: None. TECHNIQUE: Below knee left lower extremity was scanned utilizing a multidetector helical scanner without administration of IV contrast. Coronal and sagittal reformations were obtained. Routine protocol was performed. IV CONTRAST: None ORAL CONTRAST: None. COMPLICATIONS: None RADIATION DOSE: Total DLP: 299.90 mGy*cm Estimated effective dose: (DLP x 0.015 x size factor) mSv CTDIvol has been reviewed. It is below the limits set by the Radiation Protocol Committee (RPC). FINDINGS: No significant skin thickening is visualized in the visualized left lower extremity. Minimal anterior mid to distal subcutaneous fat stranding is seen in the left lower extremity, anterior to the tibia, for example on series 3, image 105. No acute fracture or dislocation. No periosteal reaction, erosion, or abnormal soft tissue calcification. Small dorsal calcaneal enthesophyte. IMPRESSION: 1. No evidence of osteomyelitis in the visualized below knee left lower extremity. 2. No overt signs of cellulitis or fasciitis. Evaluation is limited without intravenous contrast. Minimal nonspecific anterior left mid to lower leg subcutaneous fat stranding. 3. If clinical concern for osteomyelitis or fasciitis persist, left lower extremely MRI with contrast is recommended for better evaluation. Signed by: Dr. Jesse Mcgrath MD on 12/18/2018 11:12 PM
[2018-12-19] VITALS (24 sets, daily range): BP systolic 122–151; BP diastolic 71–100
[2018-12-19] MEDS: PIPER-TAZ 3.375 GM 50 ML IV SCH ×4 (00:44→18:37)
--- NOTE | 2018-12-19 03:07 | History and Physical ---
CHIEF COMPLAINT: The patient was not feeling well, nausea and vomiting for the last 2 to 3 days. HISTORY OF PRESENT ILLNESS: Mr. Bang is a 43-year-old male. He presented to the emergency room with nausea and vomiting, and severe metabolic acidosis, found to be in the DKA. The patient's labs have been done at outside emergency room. The patient reports that he also noticed swelling and pain on the right lower extremity as well. He drinks 6 packs of beer every day. Denies any smoking history. His diabetes is uncontrolled, does not use medications regularly. He is noncompliant with medications. REVIEW OF SYSTEMS: GENERAL: Denies any fever or chills. HEAD: Denies any head trauma. ENT: Denies any earache. CVS: Denies any chest pain. RESPIRATORY: Shortness of breath. The rest of the review of systems are negative except as in HPI. PAST MEDICAL HISTORY: Diabetes. PAST SURGICAL HISTORY: None. FAMILY AND SOCIAL HISTORY: He does not smoke. Drinks 6 packs every day. PHYSICAL EXAMINATION: VITAL SIGNS: Temperature 97.8, pulse of 120, blood pressure 150/77, respiratory rate of 20, O2 saturation 98%. HEENT: Normocephalic, atraumatic. NECK: Supple. CHEST: Clear to auscultation bilaterally. No wheezing. HEART: S1, S2 audible. ABDOMEN: Soft. EXTREMITIES: Left lower extremity, he has some redness. NEUROLOGIC: Awake, alert. No focal neurologic deficits. LABORATORY [place]: [place] [address], hemoglobin 17.4, platelets 231. Chemistry was done at outside ER, which showed a glucose of 427, sodium 135, potassium 5.1. The rest of the level is faxed here, but I cannot review it. CK-MB 2.9. Troponin negative. VBG shows pH of 7.09. ASSESSMENT/PLAN: Mr. Bang is a 43-year-old male with severe DKA. Complete labs were not sent over here. This afternoon, the sodium was 131 and creatinine 1.7, BUN 32, glucose was 497 with anion gap of 30.1. RECOMMENDATIONS: 1. I have started the patient on DKA protocol. He is on insulin drip. 2. Endocrinology consult. 3. CT of the lower extremity to rule out abscess. I will start the patient on IV Zosyn. 4. ID consult. Morgan MD TALA Phoenix/KELECHI /[id number]
[2018-12-19] MEDS: SODIUM CHLORIDE 0.9% 1000ML 1,000 ML IV SCH ×3 (03:16→18:37)
[2018-12-19 05:39] LABS: ANION GAP 16.3 mmol/L (8-16); BLOOD UREA NITROGEN 20 mg/dL (7-26); BUN/CREATININE RATIO 16 (6-25); CALCIUM 8.7 mg/dL (8.4-10.2); CARBON DIOXIDE 16 mmol/L (22-29); CHLORIDE 104 mmol/L (98-107); CREATININE, SERUM 1.23 mg/dL (0.72-1.25); EST GLOMERULAR FILTRATION RATE > 60 ML/MIN (60-); GLUCOSE 187 mg/dL (74-118); MAGNESIUM 2.1 MG/DL (1.3-2.1); POTASSIUM 4.3 mmol/L (3.5-5.1); SODIUM 132 mmol/L (136-145)
--- NOTE | 2018-12-19 07:00 | NUR ---
Bedside report given to Tutu ARROYO. Pt reports no pain at this time. No signs of distress noted. Care plan reviewed. No pt family at the bedside.
--- NOTE | 2018-12-19 11:23 | NUR ---
WOUND CARE CONSULTATION - INITIAL EVALUATION Patient admitted from home to ER for Nausea & Vomiting for 2 days, lethargy, DKA. HX: DM LABS: WBC18.3 HGB16.2 HCT47 NEUT%80.5 [id number] IIB082 * On IV Insulin LLE CT W/O Contrast- No Osteomyelitis, No Signs of Cellulitis/ Fascitis - Study limited due to no contrast. Dr Giordano on case for IV ABX Management. WC Consulted for Scabs with redness to LLE. PATIENT VISIT: Patient CORRYOXFahad with Spouse at bedside Ambulatory/ Turns Self Sunil Score 20 Presents with Redness to LLE Anterior. Oval shaped diffused. Unable to say how it started. Denies insect bites or recent injuries to area. There is a scab on the dorsal aspect of foot but does not appear to be contributory to redness of LLE. States area is much improved. Strong pedal pulses & posterior tibial pulses. Denies numbness or tingling to feet & toes. States blood glucose normally is at about 250. Spouse states diet is manageable but the main issue is he likes to drink beer. Diabetes education provided (approx 30 minutes )Will need continuous reinforcement. Spouse states will seek Maintenance Analyst in outpatient setting for DM management. No Pressure Ulcers Identified. IMPRESSION: 1. Left Foot Dorsal-Abrasion/ Scab- Stable 2. Left Leg- Cellulitis without ulcerations RECOMMENDATION: 1. Bilateral Feet and Ankles - Vitamins A&D ointment daily. 2. Continue Conservative PUP 3. Encourage Out of Bed Activity. Thank you for consulting with Wound Care. Addendum: 12/19/18 at 1139 by Ruben Baldwin RN Amended: Links added.
[2018-12-19] MEDS ORDERED: INSULIN REGULAR, HUMAN 3ML VL 300 UNIT in SODIUM CHLORIDE 0.45% 100 ML 300 ML IV SCH ×2 (14:23)
[2018-12-19] MEDS ORDERED: DEXTROSE 50% SYRINGE 50 ML IV PRN (14:30)
--- NOTE | 2018-12-19 14:38 | NUR ---
CASE MANAGEMENT INITIAL ASSESSMENT Animal Bounty Hunter to bedside to discuss plan of care with patient/family. CM/SW role and care transitions discussed. Anticipated discharge plan discussed along with duration of care. CM/SW discussed patients right to make decisions in care. CM/SW work hours given. Patient lives: [place] [address] HOME Admit/Transfer: ER Hospital/ER visits since last admit: NONE POA/Emergency contact: Current/Previous Home Health: NONE PCP/Follow-up Care: NONE Current/Previous DME: GLUCOMETER Other Services: NONE Employment Status: WORKS [employer] Areas of Concerns: MED MGMT, DIET, EXERCISE, COMPLIANCE W F/U CARE. 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 DISCUSSED MAKING THEIR APPOINTMENT PRIOR TO DC. VERBALIZED UNDERSTANDING. DISCUSSED IMPORTANT LABS, F/U, DIET AND TAKING INSULIN. 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 Referral Needs: MAY NEED HH. Education Needs: REINFORCE DIABETIC TEACHING. IMM/MASON given and signed (if applicable): N/A Goal for discharge: RETURN HOME. CM/SW left business card at the bedside with contact information. Name and number was also written on the patients whiteboard. Patient verbalized understanding of discussion. CM will follow-up with ongoing discharge and transition of care needs.
[2018-12-19] MEDS ORDERED: INSULIN REGULAR, HUMAN 3ML VL 100 UNIT in SODIUM CHLORIDE 0.45% 100 ML 100 ML IV SCH ×2 (14:45)
--- NOTE | 2018-12-19 14:55 | NUR ---
Nutrition Screen Note RD Recommendation for Physician: - ADAT to goal of 2000 ADA - Diet education provided 12/19 Plan of Care: RD following, monitoring for tolerance and adequacy Nutrition reason for involvement: DX- DKA Primary Diagnose(s): DKA, N/V PMH: DM Ht: 72 in Wt: 205 lb BMI: 27.8 kg/m2 IBW: [address] Assessment: (12/19) 43 YOM admitted for DKA with N/V with hx of DM2, per MD notes pt non-compliant with medications at home. Pt seen today per dx of DKA. Pt reports good appetite and po intake prior to onset of symptoms a few days ago. GI distress is resolved. Pt reports UBW of 220# within the past 6 mo- noted 9% wt loss in 6 mo. Pt states that he has never received diabetic diet education, pt and significant other receptive to diet education at time of visit. Pt educated on CHO sources, CHO serving sizes, foods to avoid, label reading, and meal planning. All questions answered at time of visit. Chart reviewed. Labs and meds reviewed. Will monitor and continue to follow. Current Diet: NPO Malnutrition Evaluation (12/19/18) The patient does not meet criteria for a specified degree of malnutrition at this time. Will re-evaluate at follow-up as appropriate. Diet Education Needs Assessment: Diet education indicated, pt receptive- education provided 12/19. Learner(s): pt, pt's significant other Barriers: none Cultural/Language Modifications: none Readiness: ready Method: handouts, discussion Topics: DM2 nutrition therapy Understanding/Compliance: fair Nutrition Care Level: Low Signed: Raquel El RD, LD, [facility]
[2018-12-19 15:05] LABS: FREE T4 (FREE THYROXINE) 0.95 ng/dL (0.9-1.8); THYROID STIMULATING HORMONE 1.155 uIU/mL (0.350-4.940)
--- NOTE | 2018-12-19 19:00 | NUR ---
Bedside report received from Tutu ARROYO. No family at the bedside. Pt reports no pain or discomfort, no signs of distress noted at this time. Care plan reviewed.
[2018-12-19] MEDS ORDERED: INSULIN GLARGINE 100 UNITS/ML VIAL SQ SCH (21:00)
[2018-12-19 21:03] LABS: BASOPHILS % 0.1 % (0.0-1.0); EOSINOPHILS % 0.1 % (0.0-6.0); HEMATOCRIT 39.4 % (38.2-49.6); HEMOGLOBIN 14.1 g/dL (14.0-18.0); LYMPHOCYTES # (AUTO) 1.2 (1.0-3.2); LYMPHOCYTES % 15.9 % (18.0-39.1); MEAN CORPUSCULAR HEMOGLOBIN 30.5 pg (28-32); MEAN CORPUSCULAR HGB CONC 35.8 g/dL (31-35); MEAN CORPUSCULAR VOLUME 85.1 fL (81-99); MONOCYTES # (AUTO) 0.9 (0.2-0.8); MONOCYTES % 11.5 % (4.4-11.3); NEUTROPHILS # (AUTO) 5.4 (2.1-6.9); NEUTROPHILS % 71.2 % (38.7-80.0); PLATELET COUNT 192 x10e3/uL (140-360); RED BLOOD COUNT 4.63 x10e6/uL (4.3-5.7); RED CELL DISTRIBUTION WIDTH 12.9 % (11.7-14.4)
[2018-12-19 21:23] LABS: ALANINE AMINOTRANSFERASE 12 IU/L (0-55); ALBUMIN 2.9 g/dL (3.5-5.0); ALKALINE PHOSPHATASE 66 IU/L (40-150); ANION GAP 13.4 mmol/L (8-16); BILIRUBIN,DIRECT 0.6 mg/dL (0.0-0.5); BLOOD UREA NITROGEN 14 mg/dL (7-26); BUN/CREATININE RATIO 14 (6-25); CALCIUM 8.4 mg/dL (8.4-10.2); CARBON DIOXIDE 19 mmol/L (22-29); CHLORIDE 104 mmol/L (98-107); CREATININE, SERUM 0.98 mg/dL (0.72-1.25); EST GLOMERULAR FILTRATION RATE > 60 ML/MIN (60-); GLUCOSE 188 mg/dL (74-118); SODIUM 133 mmol/L (136-145)
[2018-12-19] MEDS: CEFAZOLIN SOD 2 GM/D5W 50ML 50 ML IV SCH (21:36)
[2018-12-19 21:42] LABS: POTASSIUM 3.4 mmol/L (3.5-5.1)
[2018-12-19] MEDS ORDERED: CEFAZOLIN SOD 1 GM VIAL IV SCH (22:00)
--- NOTE | 2018-12-19 22:06 | Consultation ---
DATE OF CONSULTATION: 12/18/2018 Endocrine Consultation This is a patient of Dr. Phoenix. Thank you very much referring this patient. HISTORY OF PRESENT ILLNESS: This is a 43-year-old white gentleman, who was referred to me for evaluation of uncontrolled diabetes mellitus and diabetic ketoacidosis. The patient reportedly is a known diabetic for almost 10 years and takes insulin 14 units of NovoLog once a day and is very noncompliant about taking the medications. The patient came to the hospital with history of nausea, vomiting, abdominal pain for further evaluation. His blood sugar was 497, anion gap was 30.1, and the CO2 was only 5. His hemoglobin A1c is 11%. The patient does not smoke, but he drinks alcohol. FAMILY HISTORY: Diabetes mellitus. PHYSICAL EXAMINATION: GENERAL: Today, the patient is alert, awake, a little bit of apprehensive. VITAL SIGNS: Heart rate is around 78, blood pressure 130/80 mmHg. HEENT: Essentially unremarkable. NECK: Thyroid is palpable. Clinically, he is near euthyroid. CHEST: Bilateral vesicular breathing. No . CARDIOVASCULAR: First and second heart sounds. There is no third or fourth heart sound. EXTREMITIES: The patient has evidence of diabetic sensory neuropathy in both lower extremities. There is also some redness and swelling of the left leg. CLINICAL IMPRESSION: Diabetes mellitus type 1, diabetic ketoacidosis, high anion gap, noncompliance, cellulitis of the left leg. PLAN: The plan at this time is to continue the insulin drip and just seems to start him on the Lantus and the patient will advance his diet. The patient needs extensive diabetic and dietary education. Thank you again for referring this patient. I will be following this patient with you. MD HAWK Vance/KELECHI /[id number]
[2018-12-20] VITALS (11 sets, daily range): BP systolic 124–152; BP diastolic 74–95
--- NOTE | 2018-12-20 01:37 | Consultation ---
DATE OF CONSULTATION: REASON FOR CONSULTATION: This patient with sepsis and cellulitis of the legs. HISTORY OF PRESENT ILLNESS: This patient, who is a very pleasant 43-year-old white male, I was contacted yesterday from the emergency room urgently because of sepsis. The patient was admitted. He is currently in the intensive care unit. The patient is seen and examined. The patient, who is a 43-year-old white male, comes in to the emergency room with nausea, vomiting, not feeling well. He was found to have diabetic ketoacidosis. The patient was admitted to intensive care unit, started on IV fluids and IV antibiotic. Please refer to the chart for antibiotic. The patient tells me also that he noted that his left leg, there was redness and swelling. This started also a few days ago. The patient denies a history of trauma. The patient is currently lying in bed comfortably. PAST MEDICAL HISTORY: Diabetes mellitus. PAST SURGICAL HISTORY: Denies. ALLERGIES: NKA. SOCIAL HISTORY: He denies smoking, drug abuse, or alcohol abuse. He drinks 6 packs a day. REVIEW OF SYSTEMS: HEENT: There is no headache, visual changes, hearing changes. GI: There is no nausea, no vomiting, no diarrhea. CARDIAC: There is no arrhythmia. NEURO: No seizure activity. SKIN: There is no rash except on the leg. JOINT: There is no erythema or edema. All other symptoms within normal limit. MEDICATION LIST: He is currently on piperacillin-tazobactam and vancomycin, which was started just today as well as insulin. LABORATORY DATA: White count on admission was 18.3, hemoglobin 16.2. His sodium 132, potassium 4.3, creatinine 1.2, glucose 187. His chest x-ray showed no acute abnormality. PHYSICAL EXAMINATION: GENERAL: He is currently alert, oriented, does not seem to be in acute distress. VITAL SIGNS: Stable. Currently afebrile. HEENT: Normocephalic. Not icteric. NECK: Supple. No lymphadenopathy. No thyromegaly. CHEST: Clear bilaterally. HEART: S1 and S2. No S3, S4, or murmur. ABDOMEN: Soft. Bowel sounds present. No tenderness. No hepatosplenomegaly. EXTREMITIES: No edema. SKIN: There is no rash except on the left leg. On the left leg, there is erythema and rash above the leg from the ankle all the way to the knee. IMPRESSION: Sepsis, diabetic ketoacidosis, and the patient with diabetes, source probably cellulitis of the leg. Initially, he was on vancomycin and Zosyn, but so far, cultures are negative. The patient clinically seems to be better. I will change him to Ancef at the present time 2 g q.8. Agree with diabetic control, insulin placement. Agree with supportive care. We will follow with you. Recheck CBC. Recheck Chem panel. Jeffrey Giordano MD ZS/MODL /[id number]
[2018-12-20] MEDS: SODIUM CHLORIDE 0.9% 1000ML 1,000 ML IV SCH ×3 (03:13→21:15)
[2018-12-20] MEDS: CEFAZOLIN SOD 2 GM/D5W 50ML 50 ML IV SCH ×3 (06:31→21:14)
--- NOTE | 2018-12-20 07:00 | NUR ---
Bedside report given to Tutu ARROYO. Care plan reviewed. No family at the bedside. Pt reports no pain at this time, no signs of distress noted.
[2018-12-20] MEDS ORDERED: ACETAMINOPHEN 325 MG TAB PO PRN (08:45)
[2018-12-20] MEDS: VITAMIN A & D OINT 2 OZ TUBE TOP SCH (09:53)
[2018-12-20 10:15] LABS: BASOPHILS % 0.4 % (0.0-1.0); EOSINOPHILS % 0.1 % (0.0-6.0); HEMATOCRIT 40.9 % (38.2-49.6); HEMOGLOBIN 13.9 g/dL (14.0-18.0); LYMPHOCYTES # (AUTO) 1.3 (1.0-3.2); MEAN CORPUSCULAR HEMOGLOBIN 29.4 pg (28-32); MEAN CORPUSCULAR VOLUME 86.7 fL (81-99); NEUTROPHILS # (AUTO) 4.9 (2.1-6.9); NEUTROPHILS % 66.3 % (38.7-80.0); PLATELET COUNT 173 x10e3/uL (140-360); RED BLOOD COUNT 4.72 x10e6/uL (4.3-5.7); RED CELL DISTRIBUTION WIDTH 12.7 % (11.7-14.4)
[2018-12-20 10:32] LABS: BLOOD UREA NITROGEN 11 mg/dL (7-26); BUN/CREATININE RATIO 13 (6-25); CALCIUM 8.6 mg/dL (8.4-10.2); CARBON DIOXIDE 20 mmol/L (22-29); CHLORIDE 103 mmol/L (98-107); CREATININE, SERUM 0.87 mg/dL (0.72-1.25); EST GLOMERULAR FILTRATION RATE > 60 ML/MIN (60-); GLUCOSE 227 mg/dL (74-118); MAGNESIUM 2.1 MG/DL (1.3-2.1); SODIUM 134 mmol/L (136-145)
--- NOTE | 2018-12-20 19:00 | NUR ---
Report received from CRUZ Cam,care plan reviewed. Patient received resting comfortably on the bed. Denied pain and no SOB. Respiration even and unlabored. Spo2 maintained 98% with RA. Bed in lower position,locked. Patient instructed to call for help as needed,patient verbalized and understand. Will continue to monitor.
[2018-12-20] MEDS ORDERED: INSULIN GLARGINE 100 UNITS/ML VIAL SQ SCH (21:00)
[2018-12-21] VITALS (8 sets, daily range): BP systolic 134–155; BP diastolic 67–92
[2018-12-21] MEDS: CEFAZOLIN SOD 2 GM/D5W 50ML 50 ML IV SCH ×3 (05:18→22:45)
[2018-12-21 05:29] LABS: BASOPHILS % 0.6 % (0.0-1.0); EOSINOPHILS % 0.6 % (0.0-6.0); HEMATOCRIT 38.4 % (38.2-49.6); HEMOGLOBIN 13.6 g/dL (14.0-18.0); LYMPHOCYTES # (AUTO) 1.7 (1.0-3.2); LYMPHOCYTES % 27.3 % (18.0-39.1); MEAN CORPUSCULAR HGB CONC 35.4 g/dL (31-35); MEAN CORPUSCULAR VOLUME 84.6 fL (81-99); MONOCYTES % 15.4 % (4.4-11.3); NEUTROPHILS # (AUTO) 3.5 (2.1-6.9); NEUTROPHILS % 54.8 % (38.7-80.0); PLATELET COUNT 170 x10e3/uL (140-360); RED BLOOD COUNT 4.54 x10e6/uL (4.3-5.7); RED CELL DISTRIBUTION WIDTH 12.6 % (11.7-14.4)
[2018-12-21 05:51] LABS: ANION GAP 10.8 mmol/L (8-16); BLOOD UREA NITROGEN 9 mg/dL (7-26); CALCIUM 8.8 mg/dL (8.4-10.2); CARBON DIOXIDE 27 mmol/L (22-29); CHLORIDE 106 mmol/L (98-107); GLUCOSE 134 mg/dL (74-118); MAGNESIUM 2.1 MG/DL (1.3-2.1); POTASSIUM 3.8 mmol/L (3.5-5.1); SODIUM 140 mmol/L (136-145)
[2018-12-21 06:13] LABS: BUN/CREATININE RATIO 12 (6-25); CREATININE, SERUM 0.76 mg/dL (0.72-1.25); EST GLOMERULAR FILTRATION RATE > 60 ML/MIN (60-)
--- NOTE | 2018-12-21 07:04 | NUR ---
Report given to AM nurse,walking round done.
[2018-12-21] MEDS: VITAMIN A & D OINT 2 OZ TUBE TOP SCH (08:05)
--- NOTE | 2018-12-21 08:08 | NUR ---
Blood sugar 152, no change per protocol current rate 2 units/hr, will continue to monitor
--- NOTE | 2018-12-21 14:39 | NUR ---
insulin drip decreased to 1 unit/hr per MD order, 8 units humalog given subq, will continue to monitor
[2018-12-21] MEDS ORDERED: INSULIN LISPRO 100 UNIT/1 ML 3ML VIAL SQ ONE (14:45)
--- NOTE | 2018-12-21 15:28 | Consultation ---
DATE OF CONSULTATION: 12/21/2018 REASON FOR CONSULTATION: Abnormal EKG. CHIEF COMPLAINT: Altered mental status. HISTORY OF PRESENT ILLNESS: This is a 43-year-old male with history of diabetes, noncompliant with his medications. The patient presents to outside ER with complaints of nausea, vomiting, and altered mental status for 2-3 days, was noted with blood sugar of greater than 500 and a bicarb of 5, was determined to be in DKA and has been treated as such. Also, the patient was noted with left lower extremity redness, swelling, and he is also on antibiotic therapy for cellulitis. However, overnight about 2 to 3 this morning, the patient had about 6-8 beat run of wide-complex tachycardia, therefore Cardiology was consulted. The patient seen in room. Denies any palpitations, any shortness of breath, any chest pain. 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 PAST MEDICAL HISTORY: Diabetes. SURGICAL HISTORY: Denies any surgeries. SOCIAL HISTORY: He is . 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 Denies any tobacco use, however, is positive for alcohol use, reports six beers per day. FAMILY HISTORY: Mother apparently is alive with history of rheumatoid arthritis. Father is of unknown cause. HOME MEDICATIONS: NovoLog. ALLERGIES: NO KNOWN ALLERGIES. REVIEW OF SYSTEMS: CONSTITUTIONAL: Denies any weight changes. Positive for fatigue, weakness. Denies any fevers, chills, night sweats. SKIN: Denies any rashes. However, positive for left lower extremity redness and swelling. HEENT: Positive for nausea and vomiting. Denies any vision change, blurred vision, double vision, earaches, epistaxis, swollen gums, bleeding gums, or hoarseness. CARDIAC: Denies any chest pain. Positive for dyspnea on exertion. Denies any palpitations, lower extremity edema, any orthopnea, PND. RESPIRATORY: Denies any shortness of breath, any wheezing, coughing, hemoptysis. GI: Reports good appetite usually, however ,in the past three to four days was with a poor appetite. Positive for nausea and vomiting. Denies any hematemesis, any melena. URINARY: Denies any frequency, urgency, any hematuria or dysuria. VASCULAR: Denies any lower extremity edema. However, positive for left lower extremity swelling and redness. MUSCULOSKELETAL: Denies any muscle weakness. Positive for generalized joint pains. NEUROLOGIC: Denies any numbness, tingling, tremors, weakness, paralysis, fainting. HEMATOLOGY: Denies any anemia, easy bruising. ENDOCRINE: Denies any heat or cold intolerance. Positive for polyuria. Denies any polydipsia, polyphagia. PHYSICAL EXAMINATION: VITAL SIGNS: Height 72 inches, weight 208 pounds, BMI 28. Currently, temperature 98.9, pulse 95, respiratory rate 18, blood pressure 134/78, pulse ox 99% on room air. GENERAL: Appears stated age, reliable informant, in no acute distress. SKIN: No rashes or bruises, however, left lower extremity with swelling and redness. HEENT: Normocephalic. Pupils equal and reactive. Extraocular movements intact. NECK: Trachea midline. No JVD. No thyromegaly. No carotid bruits noted. HEART: Regular rate and rhythm. No murmurs, no clicks, no gallops. PMI about 4th, 5th intercostal space. LUNGS: Bilateral breath sounds clear to auscultation. Good airway entry. ABDOMEN: Soft, nontender, nondistended. No organomegaly noted. MUSCULOSKELETAL: Good muscle strength throughout. However, there is left lower extremity redness and slight swelling. VASCULAR: +2 bilateral DP, PT pulses. NEUROLOGIC: Cranial nerves 2 through 12 seem intact. LABORATORY DATA: White count 6, hemoglobin 13, hematocrit 38, platelets 170. Chemistry; sodium 140, potassium 3.8, chloride 106, BUN 9, creatinine 0.7, mag 2.1. TSH 1.1. A1c 11.0. Venous Doppler showing no DVT. Chest x-ray, no acute abnormalities. EKG here on December 18 showing sinus tach with inverted T-waves in inferior lateral leads. ASSESSMENT: 1. Diabetic ketoacidosis. 2. Left lower extremity cellulitis. 3. Run of 8-beat wide-complex tachycardia. 4. Hypertension. PLAN: 1. The patient presents for DKA and left lower extremity cellulitis, was noted with a 8-beat run of wide-complex tachycardia. 2. We will go ahead and get an echo to evaluate heart function and structure. We will continue to monitor the patient on telemetry. Also, we will go ahead and get stat EKG. 3. Keep mag around 2 and potassium above 4. 4. We will check a lipid panel. 5. We will continue to monitor the patient and adjust cardiac therapy and further recommendations as clinical course dictates. Thank you very much for this consult. Seen and examined Agree with note Dictated by Casa Negron NP Brittany Duran MD DC/KELECHI /[id number] MTDChristianne
[2018-12-21] MEDS: INSULIN LISPRO 100 UNIT/1 ML 3ML VIAL SQ SCH ×3 (16:38→21:00)
[2018-12-21] MEDS ORDERED: INSULIN GLARGINE 100 UNITS/ML VIAL SQ SCH (21:00)
[2018-12-22] VITALS (7 sets, daily range): BP systolic 134–157; BP diastolic 64–87
[2018-12-22] MEDS: CEFAZOLIN SOD 2 GM/D5W 50ML 50 ML IV SCH ×3 (05:24→21:45)
--- NOTE | 2018-12-22 07:12 | NUR ---
Report given to AM nurse,walking round done.
[2018-12-22] MEDS: VITAMIN A & D OINT 2 OZ TUBE TOP SCH (08:01)
[2018-12-22] MEDS: INSULIN LISPRO 100 UNIT/1 ML 3ML VIAL SQ SCH ×7 (08:06→21:45)
--- NOTE | 2018-12-22 14:40 | NUR ---
Received order for diabetic teaching. LYUBOV spoke to Anitra ARROYO, pt nurse regarding order. Anitra ARROYO stated she is providing the diabetic teaching.
[2018-12-22] MEDS ORDERED: INSULIN GLARGINE 100 UNITS/ML VIAL SQ SCH (21:00)
[2018-12-23 00:08] VITALS: BP 134/64
[2018-12-23 00:09] VITALS: BP 134/64
[2018-12-23 04:00] VITALS: BP 134/64
[2018-12-23] MEDS: CEFAZOLIN SOD 2 GM/D5W 50ML 50 ML IV SCH (06:55)
[2018-12-23 08:00] VITALS: BP 146/88
[2018-12-23] MEDS: VITAMIN A & D OINT 2 OZ TUBE TOP SCH (08:28)
[2018-12-23] MEDS: INSULIN LISPRO 100 UNIT/1 ML 3ML VIAL SQ SCH ×2 (08:40→08:41)
[2018-12-23] MEDS ORDERED: METOPROLOL SUCCINATE 25 MG TAB XL PO SCH (10:00)
[2018-12-23] MEDS ORDERED: ASPIRIN 81 MG ENTERIC COATED PO SCH (10:00)
[2018-12-23] MEDS ORDERED: LOSARTAN POTASSIUM 25 MG TAB PO SCH (10:00)
--- NOTE | 2018-12-23 10:05 | NUR ---
patient instructed to follow up with cardiology outpatient per Dr. Duran, patient informed of need for stress test and further cardiac evaluation, verbalized understanding and at this time but elects to not do stress test inpatient, primary MD aware and orders received to discharge patient
[2018-12-23] MEDS ORDERED: ASPIRIN81 MG PO (10:07)
[2018-12-23] MEDS ORDERED: METOPROLOL TART25 MG PO (10:09)
[2018-12-23] MEDS ORDERED: LOSARTAN POTASS25 MG PO (10:10)
[2018-12-23] MEDS ORDERED: DOXYCYCLINE HY100 MG PO (10:11)
[2018-12-23] MEDS ORDERED: LANTUS 3ML100 UNITS/ SQ (10:15)
--- NOTE | 2018-12-24 07:15 | Discharge Summary ---
FINAL DIAGNOSES: 1. Diabetic ketoacidosis. 2. Uncontrolled diabetes. 3. Possible cellulitis of the leg. 4. Hypertension. 5. Abnormal heart rhythm and EKG. ADMISSION HISTORY AND HOSPITAL COURSE: Mr. Bang is a 43-year-old male, who presented to the emergency room with complaints of abdominal discomfort and nausea. He was in severe DKA. The patient was started on DKA protocol and the patient started feeling better. A CT of the lower extremity was done and there was redness and did not show any evidence of cellulitis. Endocrinology was consulted and the recommendation was followed. ID was also consulted as well and antibiotics were started. Cardiology was consulted because of abnormal EKG and heart rhythm and Dr. Duran recommended the patient to have a stress test, which he will consider doing it as an outpatient. This was explained to him in detail. Discharge medication list reviewed and I have given the prescription of losartan, aspirin, metoprolol, insulin. Prescriptions were given by Dr. Workman and antibiotic was given by Dr. Giordano. The patient will follow up with his primary care physician. I have explained to him that I do not do primary care as an outpatient and he told me that he has his own primary care physician, which he will follow up. MD TALA Valentine/KELECHI /[id number]
== END 2018-12-23 09:30 | disposition home or self-care (01) | DRG 871 ==
LOC: FSED 13:32 → ERHOLD 16:41 → ICU 19:16 → IMCU 12-21 06:24
PROVIDERS: ADMIT Internal Medicine; ATTEND Internal Medicine
DX: A41.9 Sepsis, unspecified organism (principal); E11.10 Type 2 diabetes mellitus with ketoacidosis without coma; L03.116 Cellulitis of left lower limb; I47.2 Ventricular tachycardia; E86.0 Dehydration; E11.40 Type 2 diabetes mellitus with diabetic neuropathy, unspecified; I10 Essential (primary) hypertension; F10.10 Alcohol abuse, uncomplicated; L95.9 Vasculitis limited to the skin, unspecified; R41.82 Altered mental status, unspecified; R53.81 Other malaise; Z28.21 Immunization not carried out because of patient refusal; Z91.14 Patient's other noncompliance with medication regimen; Z79.82 Long term (current) use of aspirin; Z79.4 Long term (current) use of insulin
CPT/HCPCS: 36415; 71045; 80048; 80053; 80061; 80076; 82948; 83036; 83735; 84100; 84439; 84443; 85025; 93005; 93306; 93970; 96372; 99284; J0690; J1815; J2405; J2543; J7030

== ENCOUNTER 2018-12-30 17:40 | Inpatient (IN) | payer OTHER ==
[~2018-12-30] VITALS: Ht 180.3 cm; Wt 102.1 kg
[~2018-12-30 17:40] MED LIST: ASPIRIN81 MG PO; DOXYCYCLINE HY100 MG PO; LANTUS 3ML100 UNITS/ SQ; LOSARTAN POTASS25 MG PO; METOPROLOL TART25 MG PO
[2018-12-30] MEDS ORDERED: SODIUM CHLORIDE 0.9% 1000ML 1,000 ML IV STA (18:20)
[2018-12-30 18:35] LABS: BASOPHILS # (AUTO) 0.1 (0.0-0.1); BASOPHILS % 0.6 % (0.0-1.0); EOSINOPHILS # (AUTO) 0.1 (0.0-0.4); HEMATOCRIT 39.5 % (38.2-49.6); HEMOGLOBIN 13.5 g/dL (14.0-18.0); LYMPHOCYTES # (AUTO) 1.7 (1.0-3.2); LYMPHOCYTES % 19.1 % (18.0-39.1); MEAN CORPUSCULAR HEMOGLOBIN 29.3 pg (28-32); MEAN CORPUSCULAR HGB CONC 34.2 g/dL (31-35); MEAN CORPUSCULAR VOLUME 85.9 fL (81-99); MONOCYTES # (AUTO) 0.8 (0.2-0.8); MONOCYTES % 9.1 % (4.4-11.3); NEUTROPHILS # (AUTO) 6.2 (2.1-6.9); PLATELET COUNT 308 x10e3/uL (140-360); RED CELL DISTRIBUTION WIDTH 12.1 % (11.7-14.4)
[2018-12-30 18:42] LABS: INR 0.94; PROTHROMBIN TIME 13.1 seconds (11.9-14.5)
[2018-12-30 18:43] LABS: PARTIAL THROMBOPLASTIN TIME 31.1 seconds (23.8-35.5)
[2018-12-30 18:48] LABS: BILIRUBIN,URINE NEGATIVE (NEGATIVE); CLARITY,URINE CLEAR (CLEAR); COLOR,URINE YELLOW (YELLOW); KETONES,URINE 2+ (NEGATIVE); LEUKOCYTE ESTERASE ,URINE NEGATIVE (NEGATIVE); NITRITE,URINE NEGATIVE (NEGATIVE); PROTEIN,URINE DIPSTICK NEGATIVE (NEGATIVE); URINE UROBILINOGEN 0.2 mg/dL (0.2 - 1)
[2018-12-30 18:52] LABS: ALANINE AMINOTRANSFERASE 25 IU/L (0-55); ALBUMIN 3.4 g/dL (3.5-5.0); ALBUMIN/GLOBULIN RATIO 0.9 (0.8-2.0); ALKALINE PHOSPHATASE 68 IU/L (40-150); ANION GAP 17.2 mmol/L (8-16); BLOOD UREA NITROGEN 14 mg/dL (7-26); BUN/CREATININE RATIO 18 (6-25); CALCIUM 10.2 mg/dL (8.4-10.2); CARBON DIOXIDE 31 mmol/L (22-29); CHLORIDE 99 mmol/L (98-107); CREATINE KINASE 49 IU/L (30-200); CREATININE, SERUM 0.78 mg/dL (0.72-1.25); EPITHELIAL CELLS,URINE FEW /LPF; EST GLOMERULAR FILTRATION RATE > 60 ML/MIN (60-); GLUCOSE 141 mg/dL (74-118); MAGNESIUM 1.6 MG/DL (1.3-2.1); POTASSIUM 3.2 mmol/L (3.5-5.1); RBC,URINE 0-5 /HPF (0-5); SODIUM 144 mmol/L (136-145); WBC,URINE (MAN) 0-5 /HPF (0-5)
--- NOTE | 2018-12-30 19:04 | Diagnostic Imaging Report ---
EXAMINATION: CHEST SINGLE (PORTABLE) COMPARISON: Chest x-ray 12/18/2018 INDICATION: ^DM, CELLULITIS ^[id number] ^185 DISCUSSION: Frontal view of the chest obtained at 1849 hours. HEART AND MEDIASTINUM: The cardiomediastinal silhouette is unremarkable. LINES: None. LUNGS: The lungs are well inflated and clear. No pneumonia or pulmonary edema. Trace left basilar atelectasis. PLEURA: No pleural effusion or pneumothorax. BONES AND SOFT TISSUES: No focal osseous lesion. The soft tissues are normal. IMPRESSION: Trace left basilar atelectasis. No acute cardiopulmonary process. Signed by: Dr. Mirela More MD on 12/30/2018 7:00 PM
--- NOTE | 2018-12-30 19:32 | NUR ---
PT RESTING COMFORTABLY IN BED AT THIS TIME, NO S/S DISTRESS NOTED. DISCUSSED PLAN OF CARE, VERBALIZED UNDERSTANDING. WILL CONTINUE TO MONITOR.
[2018-12-30] MEDS ORDERED: POTASSIUM CHLORIDE 20 MEQ TAB CR PO ONE (20:00)
[2018-12-30] MEDS ORDERED: VANCOMYCIN 1GM/NS 250 ML 250 ML IV SCH (20:00)
[2018-12-30] MEDS ORDERED: MORPHINE SULFATE 2 MG/ML SYR 1ML IV PRN (20:15)
[2018-12-30] MEDS ORDERED: DEXTROSE 50% SYRINGE 50 ML IV PRN (20:15)
[2018-12-30] MEDS ORDERED: ACETAMINOPHEN 325 MG TAB PO PRN (20:15)
[2018-12-30] MEDS: INSULIN REGULAR, HUMAN 100 UNIT/1 ML 3ML VIAL SQ SCH (21:00)
[2018-12-30] MEDS ORDERED: MORPHINE SULFATE INJ 4 MG/ML INJ 1ML ONE (21:20)
[2018-12-30] MEDS: ONDANSETRON HCL INJ 2MG/ML 2ML 2 MG/ML VIAL IV PRN (21:22)
[2018-12-30] MEDS: PIPER-TAZ 3.375 GM 50 ML IV SCH (21:37)
[2018-12-30] MEDS: SODIUM CHLORIDE 0.9% 1000ML 1,000 ML IV SCH (21:37)
--- NOTE | 2018-12-30 22:00 | NUR ---
Received report from Rima, ER nurse. Patient arrived via stretcher. Patient ambulates and A&Ox3. Call light within reach. Patient refuses bed alarm
[2018-12-30 22:49] VITALS: BP 171/89
[2018-12-30 23:42] VITALS: BP 171/89
[2018-12-31] VITALS (7 sets, daily range): BP systolic 117–143; BP diastolic 57–78
[2018-12-31] MEDS: PIPER-TAZ 3.375 GM 50 ML IV SCH ×5 (01:39→23:53)
[2018-12-31 06:07] LABS: BASOPHILS % 0.7 % (0.0-1.0); EOSINOPHILS # (AUTO) 0.1 (0.0-0.4); HEMATOCRIT 34.6 % (38.2-49.6); HEMOGLOBIN 11.6 g/dL (14.0-18.0); LYMPHOCYTES # (AUTO) 1.2 (1.0-3.2); LYMPHOCYTES % 20.5 % (18.0-39.1); MEAN CORPUSCULAR HEMOGLOBIN 29.6 pg (28-32); MEAN CORPUSCULAR HGB CONC 33.5 g/dL (31-35); MEAN CORPUSCULAR VOLUME 88.3 fL (81-99); MONOCYTES # (AUTO) 0.7 (0.2-0.8); MONOCYTES % 11.8 % (4.4-11.3); NEUTROPHILS # (AUTO) 3.9 (2.1-6.9); NEUTROPHILS % 64.8 % (38.7-80.0); PLATELET COUNT 247 x10e3/uL (140-360); RED BLOOD COUNT 3.92 x10e6/uL (4.3-5.7)
[2018-12-31 06:44] LABS: ALANINE AMINOTRANSFERASE 20 IU/L (0-55); ALBUMIN 2.5 g/dL (3.5-5.0); ALBUMIN/GLOBULIN RATIO 0.8 (0.8-2.0); ALKALINE PHOSPHATASE 52 IU/L (40-150); ANION GAP 12.5 mmol/L (8-16); BLOOD UREA NITROGEN 11 mg/dL (7-26); BUN/CREATININE RATIO 15 (6-25); CALCIUM 8.3 mg/dL (8.4-10.2); CARBON DIOXIDE 26 mmol/L (22-29); CHLORIDE 105 mmol/L (98-107); CREATININE, SERUM 0.73 mg/dL (0.72-1.25); EST GLOMERULAR FILTRATION RATE > 60 ML/MIN (60-); GLUCOSE 223 mg/dL (74-118); POTASSIUM 3.5 mmol/L (3.5-5.1); SODIUM 140 mmol/L (136-145)
--- NOTE | 2018-12-31 07:39 | NUR ---
Gave report to oncoming nurse. Call light within reach. Patient in bed
[2018-12-31] MEDS: INSULIN REGULAR, HUMAN 100 UNIT/1 ML 3ML VIAL SQ SCH ×4 (08:20→21:00)
[2018-12-31] MEDS: ASPIRIN 81 MG CHEW TAB PO SCH (08:25)
[2018-12-31] MEDS: MORPHINE SULFATE INJ 4 MG/ML INJ 1ML IV PRN ×2 (08:25→21:45)
[2018-12-31] MEDS: ONDANSETRON HCL INJ 2MG/ML 2ML 2 MG/ML VIAL IV PRN (08:25)
[2018-12-31] MEDS: LOSARTAN POTASSIUM 25 MG TAB PO SCH (08:25)
[2018-12-31] MEDS: METOPROLOL TARTRATE 25 MG TAB PO SCH (09:50)
[2018-12-31] MEDS: VANCOMYCIN 1GM/NS 250 ML 250 ML IV SCH (11:58)
--- NOTE | 2018-12-31 19:20 | NUR ---
rounded with security shift manager nurse, patient aware of change and in no distress. call watt within reach and bed in lowest position
[2018-12-31] MEDS: SODIUM CHLORIDE 0.9% 1000ML 1,000 ML IV SCH (20:05)
--- NOTE | 2018-12-31 22:25 | Consultation ---
DATE OF CONSULTATION: REASON FOR CONSULTATION: Cellulitis of the leg. HISTORY OF PRESENT ILLNESS: This patient who was recently in the hospital with infection in his leg. He was on IV antibiotics and he was doing well and he received vancomycin, he was discharged home on doxycycline. The patient at that time had diabetic ketoacidosis and left lower extremity cellulitis. He did have tachycardia. The patient did well. He was discharged home. He was getting better originally, but still has redness and swelling in his leg. He was wearing a tight shoe for his work, came back here, contacted by the ER and discussed with the patient who was on vancomycin and Zosyn. PAST MEDICAL HISTORY: Diabetes. PAST SURGICAL HISTORY: Denies. ALLERGIES: NKA. SOCIAL HISTORY: There is no smoking, drug abuse or alcohol abuse. FAMILY HISTORY: Otherwise, diabetes mellitus. REVIEW OF SYSTEMS: HEENT: Negative. PULMONARY: Negative. CARDIAC: Negative. : Negative. SKIN: There is no other rash. PHYSICAL EXAMINATION: GENERAL: He is currently alert, oriented, does not seem to be in acute distress. VITAL SIGNS: Stable, currently afebrile. HEENT: Not icteric. NECK: Supple. CHEST: Clear. HEART: S1 and S2. ABDOMEN: Soft. EXTREMITIES: Leg, there is erythema and edema. IMPRESSION: Cellulitis of the leg. I think it reoccurred because he was wearing his work boot, which I think was tight. There is an ulcer noted on the back. I would recommend to continue vancomycin and Zosyn. Recheck CBC. Recheck Chem panel. We will keep him on IV antibiotic for a few days. Discussed with the patient, he needs to wear a larger size I think. Not too tight however he needs to wear thigh high elastic stocking for lymphedema. We will follow up with the CBC and Chem panel. MD NIC Kingston/KELECHI /[id number]
[2019-01-01] VITALS (9 sets, daily range): BP systolic 118–149; BP diastolic 59–67
[2019-01-01] MEDS: VANCOMYCIN 1GM/NS 250 ML 250 ML IV SCH
[2019-01-01] MEDS: SODIUM CHLORIDE 0.9% 1000ML 1,000 ML IV SCH ×5 (04:05→22:14)
[2019-01-01] MEDS: PIPER-TAZ 3.375 GM 50 ML IV SCH ×4 (06:11→18:10)
--- NOTE | 2019-01-01 06:24 | NUR ---
PT RESTING .DENIES PAIN .NOACUTE DISTRESS NOTED .CALL LIGHT WITH IN REACH
--- NOTE | 2019-01-01 07:29 | NUR ---
REPORT GIVEN TO THE ONCOMING NURSE
[2019-01-01] MEDS: INSULIN REGULAR, HUMAN 100 UNIT/1 ML 3ML VIAL SQ SCH ×4 (07:30→21:00)
--- NOTE | 2019-01-01 07:30 | NUR ---
PATIENT IS IN STABLE CONDITION WITH NO S/S OF RESPIRATORY DISTRESS. NO PAIN VOICED. IV FLUIDS INFUSING. BED ALARM ON. CALL LIGHT IS WITHIN REACH, PATIENT INSTRUCTED TO CALL FOR ASSISTANCE NEEDED.
[2019-01-01] MEDS: LOSARTAN POTASSIUM 25 MG TAB PO SCH (08:40)
[2019-01-01] MEDS: ASPIRIN 81 MG CHEW TAB PO SCH (08:40)
[2019-01-01] MEDS: METOPROLOL TARTRATE 25 MG TAB PO SCH (08:40)
[2019-01-01] MEDS: MORPHINE SULFATE INJ 4 MG/ML INJ 1ML IV PRN ×2 (10:13→23:16)
--- NOTE | 2019-01-01 12:44 | NUR ---
SPOKE WITH Fortino WRIGHT REGARDING PATIENT'S VANCO TROUGH OF 4.9- NEW ORDER TO CHANGE 1GM OF VANCO TO 1.5GM OF VANCOMYCIN BID.
[2019-01-01] MEDS ORDERED: VANCOMYCIN 1GM/NS 250 ML 250 ML IV SCH (12:45)
[2019-01-01] MEDS ORDERED: VANCOMYCIN HCL 1.5 GM in SODIUM CHLORIDE 0.9% 250ML 300 ML IV SCH (14:00)
--- NOTE | 2019-01-01 14:45 | NUR ---
WOUND CARE CONSULTATION - INITIAL EVALUATION Patient admitted from home to ER for LLE unresolved Redness and swelling. HX: DM LABS: WBC 6.04 HGB 11.6 HCT 34.6 NEUT% 64.[address] Giordano on case for IV ABX Management. WC Consulted for Ulcer to Left Posterior Thigh. PATIENT VISIT: Patient AAOX4 with Spouse at bedside Ambulatory/ Turns Self Sunil Score [address] Scab to Left Posterior Lower Leg at Calf with with pale blanched center. Likely source of entry for infection. Presents with Redness to LLE with Edema +3 pitting. Hot upon touch. Right side warm to touch. States boot rubs on that area and was using duct tape over area to keep boot from rubbing. Strong Pedal and Posterior tibial pulses. Denies numbness or tingling to feet & toes. History of ETOH. States he has not been drinking anymore since last admission. Diabetes education provided (approx 30 minutes ) Will need continuous reinforcement. Spouse states he has an Surgical Appliances Salesperson appointment at outpatient setting for DM management this Monday01/04/19. Annular blister noted to Left Foot Dorsal. Serous Filled. 0.5x0.5cm. No Pressure Ulcers Identified. IMPRESSION: 1. Left Posterior Calf Dorsal-Laceration/ Scabbed 2. Left Leg- Cellulitis without ulcerations RECOMMENDATION: Continue IV ABX. Reconsult Wound Care if open ulcers/ draining ulcers arise. Thank you for consulting with Wound Care. Addendum: 01/01/19 at 1458 by Ruben Baldwin RN Amended: Links added.
[2019-01-01] MEDS: VANCOMYCIN HCL 1.5 GM in SODIUM CHLORIDE 0.9% 250ML 300 ML IV SCH (16:42)
--- NOTE | 2019-01-01 19:12 | NUR ---
PATIENT IS IN STABLE CONDITION WITH NO S/S OF RESPIRATORY DISTRESS. NO PAIN VOICED. IV ANTIBIOTICS INFUSING. BED ALARM ON. CALL LIGHT IS WITHIN REACH, PATIENT INSTRUCTED TO CALL FOR ASSISTANCE NEEDED. BEDSIDE REPORT GIVEN TO ONCOMING NURSE.
--- NOTE | 2019-01-01 19:46 | NUR ---
RECEIVED PT LYING IN THE BED .NO C/O PAIN .RT AC 20 G INFUSING NS AT 125 ML/HR .LEFT LEG RED AND SWOLLEN.CALL LIGHT WITH IN REACH .CONTINUE TO MONITOR
[2019-01-02] MEDS: VANCOMYCIN HCL 1.5 GM in SODIUM CHLORIDE 0.9% 250ML 300 ML IV SCH (03:30)
[2019-01-02 04:00] VITALS: BP 146/68
[2019-01-02] MEDS: SODIUM CHLORIDE 0.9% 1000ML 1,000 ML IV SCH ×2 (04:05→12:23)
[2019-01-02] MEDS: PIPER-TAZ 3.375 GM 50 ML IV SCH ×4 (05:51→17:53)
--- NOTE | 2019-01-02 07:15 | NUR ---
The pt. is in bed awake and denies pain or discomfort currently. The bed rails are elevated times 2 and and the bed alarm is engaged.
--- NOTE | 2019-01-02 07:19 | NUR ---
PT RESTING .NO ACUTE DISTRESS NOTED .REPORT GIVEN TO THE ONCOMING NURSE
[2019-01-02 08:00] VITALS: BP 148/70
[2019-01-02] MEDS: INSULIN REGULAR, HUMAN 100 UNIT/1 ML 3ML VIAL SQ SCH ×4 (08:28→20:32)
[2019-01-02] MEDS: ASPIRIN 81 MG CHEW TAB PO SCH (08:28)
[2019-01-02] MEDS: METOPROLOL TARTRATE 25 MG TAB PO SCH (08:29)
[2019-01-02] MEDS: LOSARTAN POTASSIUM 25 MG TAB PO SCH (08:29)
[2019-01-02 08:45] VITALS: BP 148/70
[2019-01-02] MEDS: MORPHINE SULFATE INJ 4 MG/ML INJ 1ML IV PRN ×2 (09:47→22:34)
[2019-01-02] MEDS ORDERED: VANCOMYCIN 1GM/NS 250 ML 500 ML IV SCH (10:30)
[2019-01-02 12:00] VITALS: BP 133/66
--- NOTE | 2019-01-02 15:04 | NUR ---
WOUND CARE CONSULTATION - INITIAL EVALUATION Patient admitted from home to ER for LLE unresolved Redness and swelling. HX: DM Dr Giordano on case for IV ABX Management. WC Consulted for Ulcer to Left Posterior Thigh. PATIENT VISIT: Patient AAOX4 with Spouse at bedside Ambulatory/ Turns Self Sunil Score [address] Scab to Left Posterior Lower Leg at Calf with with pale blanched improving.Scab demarcating and smaller today. Redness improving to LLE with Edema +2 pitting. warm to touch. Right side warm to touch. Strong Pedal and Posterior tibial pulses. Denies numbness or tingling to feet & toes. History of ETOH. States he has not been drinking anymore since last admission. Reinforced Diabetes education. (approx 15minutes ). Spouse states he has an Booking Clerk appointment at outpatient setting for DM management this Monday01/04/19. Annular blister noted to Left Foot Dorsal. Serous Filled. 0.5x0.5cm. No Pressure Ulcers Identified. Dr. Giordano at bedside. Reviewed care. 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 IMPRESSION: 1. Left Posterior Calf Dorsal-Laceration/ Scabbed ( HEALING) 2. Left Leg- Cellulitis without ulcerations ( HEALING) RECOMMENDATION: Continue IV ABX. Reconsult Wound Care if open ulcers/ draining ulcers arise. - LLE Tubi-Manager Managing Daily for mild compression. (Size E) Thank you for consulting with Wound Care. Addendum: 01/02/19 at 1509 by Ruben Baldwin RN Amended: Links added.
[2019-01-02 16:00] VITALS: BP 138/61
--- NOTE | 2019-01-02 16:17 | NUR ---
The pt.'s dose of vancomycin has not been received and pharmacy was notified at this time.
[2019-01-02] MEDS: VANCOMYCIN HCL 2 GM in SODIUM CHLORIDE 0.9% 500ML 500 ML IV SCH (16:21)
--- NOTE | 2019-01-02 19:35 | NUR ---
Patient visited in room during nursing rounds. Patient alert and oriented x3. No distress noted. Left leg (below knee) appear red and quite swollen. Patient with intermittent pain on left leg. On IVF (NS at 125ml/hr). Ambulatory prn. Call watt within reach. Will monitor closely.
[2019-01-02 20:00] VITALS: BP 158/79
[2019-01-03] VITALS (7 sets, daily range): BP systolic 106–158; BP diastolic 63–78
[2019-01-03] MEDS: PIPER-TAZ 3.375 GM 50 ML IV SCH ×4 (00:06→19:29)
[2019-01-03] MEDS: SODIUM CHLORIDE 0.9% 1000ML 1,000 ML IV SCH ×3 (03:23→21:10)
[2019-01-03] MEDS: VANCOMYCIN HCL 2 GM in SODIUM CHLORIDE 0.9% 500ML 500 ML IV SCH ×2 (03:23→16:11)
--- NOTE | 2019-01-03 07:00 | NUR ---
The pt. is in bed sleep at bedside morning rounds. The iv is intact and fluids infusing without problems.
[2019-01-03] MEDS: INSULIN REGULAR, HUMAN 100 UNIT/1 ML 3ML VIAL SQ SCH ×4 (08:46→21:00)
[2019-01-03] MEDS: LOSARTAN POTASSIUM 25 MG TAB PO SCH (08:46)
[2019-01-03] MEDS: ASPIRIN 81 MG CHEW TAB PO SCH (08:46)
[2019-01-03] MEDS: METOPROLOL TARTRATE 25 MG TAB PO SCH (08:47)
--- NOTE | 2019-01-03 10:36 | NUR ---
The pt. is up ambulating in the hallway.
[2019-01-03] MEDS: MORPHINE SULFATE INJ 4 MG/ML INJ 1ML IV PRN ×2 (13:30→21:11)
[2019-01-04] VITALS: BP 157/72
[2019-01-04] MEDS: PIPER-TAZ 3.375 GM 50 ML IV SCH ×3 (00:22→11:12)
[2019-01-04] MEDS: VANCOMYCIN HCL 2 GM in SODIUM CHLORIDE 0.9% 500ML 500 ML IV SCH (03:47)
[2019-01-04] MEDS: MORPHINE SULFATE INJ 4 MG/ML INJ 1ML IV PRN (03:54)
[2019-01-04 04:00] VITALS: BP 146/77
--- NOTE | 2019-01-04 06:25 | NUR ---
Patient asleep. Currently placed on 2L NC due to O2 levels dropped to high 80s (88, 89). Pt now 94% O2 sat with NC. Condition stable. Receiving IV antibiotic.
[2019-01-04] MEDS: INSULIN REGULAR, HUMAN 100 UNIT/1 ML 3ML VIAL SQ SCH ×2 (07:30→11:30)
[2019-01-04 08:30] VITALS: BP 160/80
[2019-01-04 09:00] VITALS: BP 160/80
[2019-01-04] MEDS: ASPIRIN 81 MG CHEW TAB PO SCH (09:00)
[2019-01-04] MEDS: METOPROLOL TARTRATE 25 MG TAB PO SCH (09:00)
[2019-01-04] MEDS: LOSARTAN POTASSIUM 25 MG TAB PO SCH (09:00)
[2019-01-04 11:42] VITALS: BP 157/77
[2019-01-04] MEDS ORDERED: CIPRO500 MG PO (12:13)
--- NOTE | 2019-01-04 12:38 | NUR ---
PATIENT DISCHARGE HOME- PATIENT OFF THE UNIT AT 1227 PER WHEELCHAIR ACCOMPANIED BY PCT TO THE PATIENT'S VEHICLE. PATIENT IS IN STABLE CONDITION WITH NO S/S OF RESPIRATORY DISTRESS. NO PAIN VOICED. IV REMOVED WITH TIP INTACT AT 1223. DISCHARGE TEACHING, INSTRUCTIONS, AND MEDICATIONS GIVEN TO THE PATIENT. ALL PERSONAL ITEMS TAKEN WITH THE PATIENT AND HIS .
== END 2019-01-04 12:33 | disposition home or self-care (01) | DRG 603 ==
LOC: ER 17:40 → ERHOLD 20:18 → MED/SURG3 21:59
DX: L03.116 Cellulitis of left lower limb (principal); L97.121 Non-pressure chronic ulcer of left thigh limited to breakdown of skin; I89.0 Lymphedema, not elsewhere classified; E11.65 Type 2 diabetes mellitus with hyperglycemia; E87.6 Hypokalemia; D64.9 Anemia, unspecified; E78.5 Hyperlipidemia, unspecified; R53.81 Other malaise; E11.51 Type 2 diabetes mellitus with diabetic peripheral angiopathy without gangrene; Z79.4 Long term (current) use of insulin; Z79.82 Long term (current) use of aspirin
CPT/HCPCS: 36415; 71045; 80053; 80202; 81001; 82550; 82553; 82948; 83735; 83880; 84484; 85025; 85610; 85730; 87040; 87086; 99284; J2270; J2405; J2543; J3370; J7030; J7040; J7050

== ENCOUNTER 2022-03-06 13:05 | Emergency (ER) | payer OTHER ==
[~2022-03-06] VITALS: Ht 180.3 cm; Wt 102.1 kg
[~2022-03-06 13:05] MED LIST changes: +CIPRO500 MG PO
[2022-03-06] MEDS ORDERED: BACTRIM DS TAB1 EACH PO (13:19)
[2022-03-06] MEDS ORDERED: LEVOFLOXACIN750 MG PO (13:21)
== END 2022-03-06 14:50 | disposition home or self-care (01) ==
LOC: ER 13:09
DX: E11.621 Type 2 diabetes mellitus with foot ulcer (principal); L97.529 Non-pressure chronic ulcer of other part of left foot with unspecified severity; I10 Essential (primary) hypertension
CPT/HCPCS: 99283